=== PATIENT | female | born 1955 | race Caucasian/White ===

== ENCOUNTER → 2017-07-15 09:00 | Outpatient (POV) | payer OTHER, SELFPAY ==
[2017-07-15 09:13] VITALS: BP 121/91; PULSE 80; O2SAT 98
--- NOTE | 2017-07-15 09:19 | HMH.PMCON ---
Assessment and Plan (1) Piriformis syndrome of right side Current visit: Yes Status: Chronic Category: Medical Code(s): G57.01 - Lesion of sciatic nerve, right lower limb - Assessment and plan all Dx Assessment and Plan for all problems:: We will seek approval for right piriformis injection. Patient has tried and failed physical therapy, NSAIDs, stretching, medications. Will continue home stretching program at home. Patient would like to increase her functionality through injective therapies. This note was dictated using voice recognition software and may contain errors or omissions HPI - Data of Consult Consult date: 07/15/17 Requesting Physician: Janelle Michael APRN Primary Care Provider: Neisha Taylor APRN Family Provider: Tushar William MD - Consult Narrative Reason for consult: right hip pain History of present illness: Ms. Hayes is a 61 year old female resents today for consultation of right hip and leg pain. Patient states that driving and walking increases her pain will stretches and exercise decrease her pain. Patient states that her pain is a 5 out of 10 pain and is tried NSAIDs, physical therapy, medications. Patient is continuing home stretching program. Patient would like to be as active as possible. Most of her pain is in her right lower buttock and travels down to her knee. Patient states the pain is constant. She states that it is shooting-like at times. She states she has had this for several years. Patient has no SI's symptomology at this time. CC: Janelle Michael APRN [facility] History I have reviewed the patient's past medical history: Yes Medical History: Reports:: Diabetes Mellitus Type 2, Hyperlipidemia, Hypertension Other Medical History: Reports: Arthritis - *Social History Alcohol Intake: never Occupational Status: employed Housing: house - Psychiatric History Expresses thoughts of harming self/others: None Suicide Plan Description: No Plan Review of Systems - Review of Systems ROS General: no recent weight change, no fever, no sleep disturbances Respiratory: no cough, no shortness of air, no recurring pulmonary infections Cardiovascular/Peripheral Vascular: No chest pain, No palpitations, no edema, no shortness of breath. Gastrointestinal: no incontinence, normal bowel movements reported Genitourinary: no incontinence Musculoskeletal: Right buttock and right leg pain Psychiatric: normal mood/ affect, [denies depression], [denies anxiety] Neurological: [denies weakness in extremities], [denies balance issues] Meds Allergies Allergy/AdvReac Type Severity Reaction Status Date / Time Penicillin AdvReac Unknown NA-NAUSEA/V Uncoded 02/25/17 14:25 OMITING Objective Vital signs: Pulse BP Pulse Ox 80 121/91 98 07/15/17 09:13 07/15/17 09:13 07/15/17 09:13 Narrative: Physical Exam General: Alert and oriented x3, no acute distress, pleasant and cooperative, [on room air] Lungs: Resps E/U, Symmetrical chest expansion, Eyes: PERRL Musculoskeletal: Range of motion right hip somewhat guarded secondary to pain, deep tendon reflexes normal, strength in upper and lower extremities [5/5], antalgic gait noted, extreme point tenderness over right piriformis muscle Neurological: speech clear, applied exercise physiologist equal, no gross sensory deficits Opioid Risk Tool - Opioid Risk Tool-Female Family hx alcohol abuse: N Family hx illegal drugs: N Family hx rx drug abuse: N Personal hx alcohol abuse: N Personal hx illegal drugs: N Personal hx rx drug abuse: N Age: 45+ Hx of sexual abuse: N Mental health issues-ADD,OCD,Bipolar, etc: N Hx of depression: N Female Risk Score: 0
--- NOTE | 2017-07-15 09:34 | P.CONS_ITS ---
Assessment and Plan (1) Piriformis syndrome of right side Current visit: Yes Status: Chronic Category: Medical Code(s): G57.01 - Lesion of sciatic nerve, right lower limb - Assessment and plan all Dx Assessment and Plan for all problems:: We will seek approval for right piriformis injection. Patient has tried and failed physical therapy, NSAIDs, stretching, medications. Will continue home stretching program at home. Patient would like to increase her functionality through injective therapies. This note was dictated using voice recognition software and may contain errors or omissions HPI - Data of Consult Consult date: 07/15/17 Requesting Physician: Janelle Michael APRN Primary Care Provider: Neisha Taylor APRN Family Provider: Tushar William MD - Consult Narrative Reason for consult: right hip pain History of present illness: Ms. Hayes is a 61 year old female resents today for consultation of right hip and leg pain. Patient states that driving and walking increases her pain will stretches and exercise decrease her pain. Patient states that her pain is a 5 out of 10 pain and is tried NSAIDs, physical therapy, medications. Patient is continuing home stretching program. Patient would like to be as active as possible. Most of her pain is in her right lower buttock and travels down to her knee. Patient states the pain is constant. She states that it is shooting- like at times. She states she has had this for several years. Patient has no SI's symptomology at this time. CC: Janelle Michael APRN [facility] History I have reviewed the patient's past medical history: Yes Medical History: Reports:: Diabetes Mellitus Type 2, Hyperlipidemia, Hypertension Other Medical History: Reports: Arthritis - *Social History Alcohol Intake: never Occupational Status: employed Housing: house - Psychiatric History Expresses thoughts of harming self/others: None Suicide Plan Description: No Plan Review of Systems - Review of Systems ROS General: no recent weight change, no fever, no sleep disturbances Respiratory: no cough, no shortness of air, no recurring pulmonary infections Cardiovascular/Peripheral Vascular: No chest pain, No palpitations, no edema, no shortness of breath. Gastrointestinal: no incontinence, normal bowel movements reported Genitourinary: no incontinence Musculoskeletal: Right buttock and right leg pain Psychiatric: normal mood/ affect, [denies depression], [denies anxiety] Neurological: [denies weakness in extremities], [denies balance issues] Meds Allergies Allergy/AdvReac Type Severity Reaction Status Date / Time Penicillin AdvReac Unknown NA-NAUSEA/V Uncoded 02/25/17 14:25 OMITING Objective Vital signs: Pulse BP Pulse Ox 80 121/91 98 07/15/17 09:13 07/15/17 09:13 07/15/17 09:13 Narrative: Physical Exam General: Alert and oriented x3, no acute distress, pleasant and cooperative, [ on room air] Lungs: Resps E/U, Symmetrical chest expansion, Eyes: PERRL Musculoskeletal: Range of motion right hip somewhat guarded secondary to pain, deep tendon reflexes normal, strength in upper and lower extremities [5/5], antalgic gait noted, extreme point tenderness over right piriformis muscle Neurological: speech clear, bass singer equal, no gross sensory deficits Opioid Risk Tool - Opioid Risk T
== END ==
PROVIDERS: Family Provider Internal Medicine Adolescent Medicine; PCP Nurse Practitioner Family; Visit Provider Clinical Nurse Specialist Family Health
DX: G57.01 Lesion of sciatic nerve, right lower limb (principal)
CPT/HCPCS: 99202

== ENCOUNTER → 2017-08-11 10:39 | Outpatient (POV) | payer OTHER, SELFPAY ==
[2017-08-11 10:46] VITALS: BP 113/71; PULSE 80; RESP 18; O2SAT 97; BMI 25.7
--- NOTE | 2017-08-11 11:20 | HMH.PAINSOAP ---
[facility] Pain Management SOAP Note Subjective:: Patient is an 61-year-old white female who presents today after right piriformis injection. Patient states she 75-80% better. Patient states she is much more functional and is able to sit at work for longer periods of time. Patient doing well overall. Patient would like a repeat injection in several weeks to see if we can get a more long-term results. ROS General: no recent weight change, no fever, no sleep disturbances Respiratory: no cough, no shortness of air, no recurring pulmonary infections Cardiovascular/Peripheral Vascular: No chest pain, No palpitations, no edema, no shortness of breath. Gastrointestinal: no incontinence, normal bowel movements reported Genitourinary: no incontinence Musculoskeletal: Right-sided piriformis pain Psychiatric: normal mood/ affect Neurological: [denies weakness in extremities], [denies balance issues] Objective:: Physical Exam General: Alert and oriented x3, no acute distress, pleasant and cooperative, [on room air] Lungs: Resps E/U, Symmetrical chest expansion, Eyes: PERRL Musculoskeletal: Range of motion right leg somewhat guarded secondary to pain, deep tendon reflexes normal, strength in upper and lower extremities [5/5], slightly antalgic gait noted, extreme point tenderness over right piriformis Neurological: speech clear, postpartum nurse equal, no gross sensory deficits Assessment:: Sciatica/piriformis syndrome Plan:: We will schedule a repeat right piriformis injection for the patient given the efficacy of her last one I believe that she would benefit from one more. Patient's been stretching therapies along with anti-inflammatories and medications. I will follow-up with her after injection. Patient is not on any anticoagulation therapy This note was dictated using voice recognition software and may contain errors or omissions
--- NOTE | 2017-08-11 11:23 | P.CONS_ITS ---
[facility] Pain Management SOAP Note Subjective:: Patient is an 61-year-old white female who presents today after right piriformis injection. Patient states she 75-80% better. Patient states she is much more functional and is able to sit at work for longer periods of time. Patient doing well overall. Patient would like a repeat injection in several weeks to see if we can get a more long-term results. ROS General: no recent weight change, no fever, no sleep disturbances Respiratory: no cough, no shortness of air, no recurring pulmonary infections Cardiovascular/Peripheral Vascular: No chest pain, No palpitations, no edema, no shortness of breath. Gastrointestinal: no incontinence, normal bowel movements reported Genitourinary: no incontinence Musculoskeletal: Right-sided piriformis pain Psychiatric: normal mood/ affect Neurological: [denies weakness in extremities], [denies balance issues] Objective:: Physical Exam General: Alert and oriented x3, no acute distress, pleasant and cooperative, [ on room air] Lungs: Resps E/U, Symmetrical chest expansion, Eyes: PERRL Musculoskeletal: Range of motion right leg somewhat guarded secondary to pain, deep tendon reflexes normal, strength in upper and lower extremities [5/5], slightly antalgic gait noted, extreme point tenderness over right piriformis Neurological: speech clear, ranch helper equal, no gross sensory deficits Assessment:: Sciatica/piriformis syndrome Plan:: We will schedule a repeat right piriformis injection for the patient given the efficacy of her last one I believe that she would benefit from one more. Patient's been stretching therapies along with anti-inflammatories and medications. I will follow-up with her after injection. Patient is not on any anticoagulation therapy This note was dictated using voice recognition software and may contain errors or omissions
== END ==
PROVIDERS: Family Provider Internal Medicine Adolescent Medicine; PCP Nurse Practitioner Family; Visit Provider Clinical Nurse Specialist Family Health
DX: G57.00 Lesion of sciatic nerve, unspecified lower limb (principal)
CPT/HCPCS: 99212

== ENCOUNTER → 2017-09-09 09:42 | Outpatient (CLI) | payer OTHER, SELFPAY ==
--- NOTE | 2017-09-09 09:45 | XR_ITS ---
XR DEXA axial skeleton HISTORY: ITS.REASON: POST MENOPAUSAL ORDERING PHYSICIAN: Neisha Taylor PATIENT AGE: 61 years COMPARISON: None FINDINGS: The BMD measured at the Right femoral neck is 0.755 g/cm squared with a T score of -2.0. This is considered Osteopenic according to the World Health Organization criteria. Fracture risk is Moderate. Treatment is advised. IMPRESSION: Osteopenia with moderate fracture risk. Treatment recommended. Suggest follow-up exam September 2019
== END ==
PROVIDERS: Family Provider Internal Medicine Adolescent Medicine; PCP Nurse Practitioner Family; Visit Provider Nurse Practitioner Family
DX: Z13.820 Encounter for screening for osteoporosis (principal); Z78.0 Asymptomatic menopausal state
CPT/HCPCS: 77080

== ENCOUNTER → 2017-12-03 07:35 | Outpatient (CLI) | payer OTHER, SELFPAY | PROVIDERS: PCP Nurse Practitioner Family; Visit Provider Otolaryngology | DX: Z01.812 Encounter for preprocedural laboratory examination (principal) | CPT/HCPCS: 93005 ==

== ENCOUNTER → 2017-12-29 08:31 | Outpatient (CLI) | payer OTHER, SELFPAY ==
--- NOTE | 2017-12-29 08:35 | XR_ITS ---
XR pelvis 1-2V HISTORY: Right iliac crest pain ITS.REASON: APOPHYSITIS OF ILIAC CRESR ORDERING PHYSICIAN: Neisha Taylor PATIENT AGE: 62 years Comparison: None FINDINGS: No fracture or dislocation is evident. No significant degenerative change. No lytic or blastic change. The SI joints have an unremarkable appearance. Unremarkable soft tissues. The iliac crest has an unremarkable appearance. There is a prominent right os acetabulum. This is nonspecific but may be seen with femoral acetabular impingement. Mild osteoarthritic changes are present involving both hips. There is degenerative disc disease with facet arthritic changes L5-S1. IMPRESSION: 1. Degenerative changes of the hips and lumbosacral junction 2. Otherwise negative
== END ==
PROVIDERS: PCP Nurse Practitioner Family; Visit Provider Nurse Practitioner Family
DX: M93.959 Osteochondropathy, unspecified, unspecified thigh (principal)
CPT/HCPCS: 72170

== ENCOUNTER → 2018-06-18 13:51 | Outpatient (CLI) | payer OTHER, SELFPAY ==
--- NOTE | 2018-06-18 13:56 | XR_ITS ---
XR hand RT min 3V HISTORY: ITS.REASON: ARTHRALGIA ORDERING PHYSICIAN: Neisha Taylor PATIENT AGE: 62 years COMPARISON: None FINDINGS: No fracture or dislocation. No lytic or blastic change. There is normal mineralization.. Mild osteoarthritic change first metacarpal carpal joint. No other arthritic changes apparent. No bony erosive process. 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
--- NOTE | 2018-06-18 13:56 | XR_ITS ---
XR hand LT min 3V HISTORY: Pain ITS.REASON: ARTHRALGIA ORDERING PHYSICIAN: Neisha Taylor PATIENT AGE: 62 years COMPARISON: None FINDINGS: No fracture or dislocation. No lytic or blastic change. There is normal mineralization.. There are mild osteoarthritic changes of the first metacarpal carpal joint. No bony erosive changes IMPRESSION: Mild osteoarthritis first metacarpal carpal joint otherwise negative left hand
== END ==
PROVIDERS: PCP Nurse Practitioner Family; Visit Provider Nurse Practitioner Family
DX: M25.542 Pain in joints of left hand (principal); M25.541 Pain in joints of right hand
CPT/HCPCS: 73130

== ENCOUNTER → 2019-11-23 08:14 | Outpatient (POV) | payer OTHER, SELFPAY | PROVIDERS: Visit Provider Dermatology | DX: Z00.00 Encounter for general adult medical examination without abnormal findings (principal) ==

== ENCOUNTER 2019-12-27 14:32 | Emergency (ER) | payer OTHER, SELFPAY ==
[2019-12-27 14:39] VITALS: BP 111/87; PULSE 90; RESP 18; TEMP 36.7; O2SAT 99; BMI 27.4
--- NOTE | 2019-12-27 14:53 | HMH.EDUTC ---
[facility] [place] Clinical Impression: Contact dermatitis Qualifiers: Contact dermatitis type: allergic Contact dermatitis trigger: unspecified trigger Qualified Code(s): L23.9 - Allergic contact dermatitis, unspecified cause Disposition: Home, Self-Care Condition on Discharge: Good Instructions: Poison [place], Poison [place], Poison [place], DI for Poison [place] Allergy Additional Instructions: Try to avoid contact with the offending substance. Don't start the oral steroids until tomorrow. Don't put the topical steroids (triamcinolone) on your face or your groin. Follow up with your regular doctor. GO TO THE ER FOR ANY WORSENING SYMPTOMS OR CONCERNS Prescriptions: methylPREDNISolone [Medrol] 4 mg PO DIRECTED 6 Days #21 [email or web address] Transmission Status: Pending to [facility] Triamcinolone Acetonide 1 applicatio TP TIDP PRN 7 Days #1 tube PRN Reason: Itching Transmission Status: Pending to [facility] Referrals: Neisha Taylor APRN [Primary Care Provider] - Time of Disposition: 14:56 Medical Decision Making - Medical Records Medical records reviewed: No: I reviewed the patient's medical records. - Star Inquiry Pt receiving controlled substance: No Vital Signs: 12/27/19 14:39 Temperature 98.1 F Temperature Source Oral Pulse Rate [Radial] 90 Respiratory Rate 18 Blood Pressure [Right Arm] 111/87 Blood Pressure Mean [Right Arm] 95 Blood Pressure Source [Right Arm] Automatic Cuff Blood Pressure Position [Right Arm] Sitting 02 Sat by Pulse Oximetry 99 Oxygen Delivery Method Room Air Orders (Tests/Meds): ED MEDICATIONS Generic Name Dose Route Start Last Admin Trade Name Freq PRN Reason Stop Dose Admin Methylprednisolone Sodium Succinate 125 mg 12/27/19 14:52 Methylprednisolone Sod Succ 125mg Vial IM 12/27/19 14:53 ONCE ONE [facility] [place] - General Stated complaint: rash Time Seen by Provider: 12/27/19 14:53 Mode of Arrival: Ambulatory Source of Information: Patient Limitations: No Limitations Description of Symptoms (Recalled from Triage Doc. by RN): rash to olu upper arms HEENT Symptoms (Recalled from RN notes): No Resp Symptoms (Recalled from RN notes): No Skin Symptoms (Recalled from RN notes): Yes MS Symptoms (Recalled from RN notes): No Functional Status (Recalled from RN notes): wnl - History of Present Illness Provider Complaint: She states that over the past 1 week she has developed a rash on her bilateral arms. She states that she was exposed to poison katy or poison oak before her symptoms began. She has been taking benedryl with not much improvement in her symptoms. - Related Data Home Medications Medication Instructions Recorded Confirmed Levothyroxine Sodium 88 mcg PO DAILY 07/15/17 09/05/17 [Levothyroxine 88mcg (0.088mg) Tab] Liraglutide [Victoza 2-Reece] 1.2 ml SQ DAILY 07/15/17 09/05/17 Lisinopril/Hydrochlorothiazide 10 mg PO DAILY 07/15/17 09/05/17 [Lisinopril-Hctz 10-12.5 mg Tab] Metformin HCl 1,000 mg PO DAILY 07/15/17 09/05/17 Rosuvastatin Calcium 20 mg PO DAILY 07/15/17 09/05/17 Previous Rx's Medication Instructions Recorded Phenazopyridine HCl [Pyridium 200 pow PO TID #6 tab 06/28/18 200mg Tablet] levoFLOXacin [Levaquin 750mg 750 mg PO DAILY #5 tab 06/28/18 tablet] Triamcinolone Acetonide 1 applicatio TP TIDP PRN 7 Days #1 12/27/19 tube methylPREDNISolone [Medrol] 4 mg PO DIRECTED 6 Days #21 12/27/19 tab.[email or web address] Allergies Allergy/AdvReac Type Severity Reaction Status Date / Time Penicillins Allergy Verified 06/28/18 11:36 - Worker's Comp Is this a Worker's Comp case?: No [facility] History - Hepatitis A Screen Drug use history?: No High risk sexual behaviors?: No History of sexually transmitted infection?: No Currently employed?: No Childcare worker?: No Do you have indoor plumbing?: Yes Do you have electricity?: Yes Attestation statement:: This patient has been screened for He
[2019-12-27 15:36] VITALS: BP 111/87; PULSE 90; RESP 18; TEMP 36.7; O2SAT 99
== END 2019-12-27 15:36 | disposition home or self-care (01) ==
PROVIDERS: Emergency Provider Nurse Practitioner Family; PCP Nurse Practitioner Family
DX: L23.9 Allergic contact dermatitis, unspecified cause (principal); E11.9 Type 2 diabetes mellitus without complications; E78.5 Hyperlipidemia, unspecified; I10 Essential (primary) hypertension; Z88.0 Allergy status to penicillin; Z79.899 Other long term (current) drug therapy
CPT/HCPCS: 96372; 99201

== ENCOUNTER → 2020-01-04 08:01 | Outpatient (POV) | payer OTHER, SELFPAY | PROVIDERS: Visit Provider Dermatology | DX: Z00.00 Encounter for general adult medical examination without abnormal findings (principal) ==

== ENCOUNTER → 2020-05-16 08:01 | Outpatient (POV) | payer OTHER, SELFPAY | PROVIDERS: Visit Provider Dermatology | DX: Z00.00 Encounter for general adult medical examination without abnormal findings (principal) ==

== ENCOUNTER → 2020-05-18 11:52 | Outpatient (CLI) | payer OTHER, SELFPAY ==
--- NOTE | 2020-05-18 11:57 | XR_ITS ---
PROCEDURE: XR KUB CLINICAL INDICATION: LOWER ABD PAIN, HX OF NEPHROLITHIASIS COMPARISON: CT ABDPELW/O CT ABD PELVIS W/O CONTRAST from 04/22/2014 FINDINGS: Nonspecific nonobstructive bowel gas pattern. There are degenerative changes of the facets at the lumbosacral junction. There are multiple pelvic calcifications which may be vascular. Mild degenerative changes in the hips. IMPRESSION: No acute findings. Dictated by: Filiberto Vizcarra MD 05/18/2020 16:55 Filiberto Vizcarra MD in [place] 05/18/2020 16:55
== END ==
PROVIDERS: PCP Nurse Practitioner Family; Visit Provider Nurse Practitioner Family
DX: R10.30 Lower abdominal pain, unspecified (principal); Z87.442 Personal history of urinary calculi
CPT/HCPCS: 74018

== ENCOUNTER → 2020-07-25 14:00 | Outpatient (POV) | payer OTHER, SELFPAY | PROVIDERS: Visit Provider Dermatology | DX: Z00.00 Encounter for general adult medical examination without abnormal findings (principal) ==

== ENCOUNTER 2020-12-23 21:04 | Inpatient (IN) | payer BC, SELFPAY ==
[2020-12-23 21:02] VITALS: BP 130/107; PULSE 87; RESP 22; TEMP 36.8; O2SAT 97; BMI 26.9
[2020-12-23 21:21] VITALS: BMI 27.3
--- NOTE | 2020-12-23 21:42 | XR_ITS ---
PROCEDURE INFORMATION: Exam: XR Chest Exam date and time: 12/23/2020 9:42 PM Age: 65 years old Clinical indication: Injury or trauma; Fall; Blunt trauma (contusions or hematomas); Injury date: 12/23/2020 TECHNIQUE: Imaging protocol: XR of the chest. Views: 4 or more views. COMPARISON: CR [id number] 07/17/2016 8:44 AM FINDINGS: Lungs: Coarse interstitial lung markings likely chronic. No consolidation. Pleural spaces: Unremarkable. No pleural effusion. No pneumothorax. Heart/Mediastinum: Cardiomegaly. Bones/joints: Unremarkable. IMPRESSION: No acute findings.
--- NOTE | 2020-12-23 21:42 | CT_ITS ---
PROCEDURE INFORMATION: Exam: CT Head Without Contrast Exam date and time: 12/23/2020 9:42 PM Age: 65 years old Clinical indication: Injury or trauma; Fall; Blunt trauma (contusions or hematomas); Without loss of consciousness; Injury date: 12/23/2020 TECHNIQUE: Imaging protocol: Computed tomography of the head without contrast. 3D rendering (Not supervised by radiologist): MIP and/or 3D reconstructed images were created by the technologist. Radiation optimization: All CT scans at this facility use at least one of these dose optimization techniques: automated exposure control; mA and/or kV adjustment per patient size (includes targeted exams where dose is matched to clinical indication); or iterative reconstruction. COMPARISON: No relevant prior studies available. FINDINGS: Brain: Mild volume loss. Minimal decreased attenuation of the supratentorial white matter is likely secondary to chronic microvascular ischemia. No acute intracranial hemorrhage, midline shift or intracranial mass effect. Cerebral ventricles: No hydrocephalus. Paranasal sinuses: Visualized sinuses are unremarkable. No fluid levels. Mastoid air cells: Mild partial opacification of the right mastoid air cells. Bones/joints: Unremarkable. No acute fracture. Soft tissues: Unremarkable. IMPRESSION: No acute intracranial abnormality.
--- NOTE | 2020-12-23 21:42 | XR_ITS ---
PROCEDURE INFORMATION: Exam: XR Left Hip Exam date and time: 12/23/2020 9:42 PM Age: 65 years old Clinical indication: Injury or trauma; Fall; Blunt trauma (contusions or hematomas); Left; Hip; Injury date: 12/23/2020; Injury details: Fell; Additional info: Fall, L hip pain +short TECHNIQUE: Imaging protocol: XR Left hip. Views: 2 or 3 views hip with pelvis when performed. COMPARISON: CR PEL1V XR pelvis 1-2V 12/29/2017 8:37 AM FINDINGS: Bones/joints: There is a minimally displaced fracture the left femoral neck. No additional fracture or dislocation. Soft tissues: Unremarkable. IMPRESSION: Minimally displaced fracture of the left femoral neck.
--- NOTE | 2020-12-23 21:42 | CT_ITS ---
PROCEDURE INFORMATION: Exam: CT Cervical Spine Without Contrast Exam date and time: 12/23/2020 9:42 PM Age: 65 years old Clinical indication: Injury or trauma; Fall; Blunt trauma; Injury date: 12/23/2020 TECHNIQUE: Imaging protocol: Computed tomography images of the cervical spine without contrast. Radiation optimization: All CT scans at this facility use at least one of these dose optimization techniques: automated exposure control; mA and/or kV adjustment per patient size (includes targeted exams where dose is matched to clinical indication); or iterative reconstruction. COMPARISON: CT HEAD/BRAIN WO CON 12/23/2020 11:02 PM FINDINGS: Bones/joints: Nonspecific straightening. Trace anterolisthesis of C4 on C5 and trace retrolisthesis of C5 on C6. Vertebral body heights are preserved. [id number] degenerative change about the dens. Mild to moderate prevertebral osteophytosis. There are bilateral facet joint degenerative changes. No acute cervical spine fracture. Discs/Spinal canal/Neural foramina: No definite significant central canal stenosis within limitations of technique. Multilevel cervical foraminal stenoses. Lungs: Lung apices are normal. Pleural spaces: No visible pneumothorax. Vasculature: Vascular calcification. Soft tissues: Unremarkable. IMPRESSION: No acute cervical spine fracture.
[2020-12-23 21:48] LABS: Basophils # 0.1 K/mm3 (0-0.2); Basophils % 0.9 % (0.1-2.0); Eosinophils # 0.1 K/mm3 (0.0-0.4); Eosinophils % 0.9 % (0.1-12.0); Hematocrit 42.4 % (37.0-47.0); Hemoglobin 13.6 g/dL (12.2-16.2); Lymphocytes # 2.3 K/mm3 (0.7-4.5); Lymphocytes % 38.4 % (10-50); Mean Corpuscular Hemoglobin 28.9 pg (27.0-31.2); Mean Corpuscular Volume 90.2 fl (81-99); Mean Platelet Volume 9.6 fl (7.4-10.4); Monocytes # 0.3 K/mm3 (0.1-1.0); Monocytes % 4.1 % (1.7-9.3); Neutrophils # 3.4 K/mm3 (1.8-7.8); Neutrophils % 55.7 % (37.0-80.0); Platelet Count 206 K/mm3 (142-424); Red Cell Distribution Width 13.9 % (11.5-17.5); White Blood Count 6.1 K/mm3 (4.8-10.8)
[2020-12-23 21:53] LABS: Alanine Aminotransferase 37 U/L (12-78); Albumin Level 4.3 g/dl (3.5-5.0); Albumin/Globulin Ratio 1.4 (1.1-1.8); Alkaline Phosphatase 80 U/L (38-126); Anion Gap 13.1 mEq/L (5-15); Aspartate Amino Transferase 32 U/L (14-36); Bilirubin,Total 1.2 mg/dl (0.2-1.3); Blood Urea Nitrogen 19 mg/dl (7-17); Calcium 9.7 mg/dl (8.4-10.2); Carbon Dioxide 28 mmol/L (22.0-30.0); Chloride 102 mmol/L (98-107); Creatinine Clearance Estimated 63 mL/min (50-200); Estimated Glomerular Filt Rate 101 ml/min (>60); GFR (African American) 122 ML/MIN (>60); Glucose 214 mg/dl (74-100); Potassium 4.1 mmoL/L (3.5-5.1); Sodium 139 mmol/L (136-145); Total Protein,Serum 7.3 g/dl (6.3-8.2)
[2020-12-23 21:58] LABS: C-Reactive Protein 1.3 mg/L (0-4)
[2020-12-23 22:00] VITALS: PULSE 108; RESP 18; O2SAT 97
[2020-12-23 22:07] LABS: Troponin I 0.02 ng/ml (0.00-0.034)
[2020-12-23 22:12] LABS: Procalcitonin 0.067 ng/mL (0.0-2.0)
[2020-12-23 22:13] LABS: Erythrocyte Sedimentation Rate 19 mm/hr (0-30)
--- NOTE | 2020-12-23 22:34 | PC.NURSE ---
DR. FRIEND IN TO SEE PATIENT.
[2020-12-23 22:37] VITALS: BP 157/94; PULSE 106; RESP 18; O2SAT 97
[2020-12-23 22:40] VITALS: BP 157/94; PULSE 105; RESP 18; O2SAT 97
--- NOTE | 2020-12-23 22:47 | HMH.EDFALL ---
ED Disposition Clinical Impression: Hip fracture Qualifiers: Encounter type: initial encounter Fracture type: closed Laterality: left Qualified Code(s): S72.002A - Fracture of unspecified part of neck of left femur, initial encounter for closed fracture UTI (urinary tract infection) Qualifiers: Urinary tract infection type: site unspecified Hematuria presence: without hematuria Qualified Code(s): N39.0 - Urinary tract infection, site not specified Disposition: Admitted As Inpatient Condition on Discharge: Good - Critical Care Critical Care Time: No Attestation: On 12/23/20, the high probability of a clinically significant, sudden or life threatening deterioration of the following system(s) required my full and direct attention, intervention and personal management. The time I documented below is in addition to time spent performing reported procedures but includes the following listed in this critical care notation. Medical Decision Making - Medical Records Medical records reviewed: Yes: I reviewed the patient's medical records. - Star Inquiry Pt receiving controlled substance: No Vital Signs: 12/23/20 21:02 12/23/20 22:40 Temperature 98.2 F Temperature Source Oral Pulse Rate 105 H Pulse Rate [Right] 87 Respiratory Rate 22 18 Blood Pressure 157/94 H Blood Pressure [Right Arm] 130/107 H Blood Pressure Mean [Right Arm] 114 Blood Pressure Source [Right Arm] Automatic Cuff 02 Sat by Pulse Oximetry 97 97 Oxygen Delivery Method Room Air Room Air - Lab Data Lab results reviewed: Yes: I reviewed the patient's lab results. Lab Results 12/23/20 21:12: WBC 6.1, RBC 4.70, Hgb 13.6, Hct 42.4, MCV 90.2, MCH 28.9, MCHC 32.0, RDW 13.9, Plt Count 206, MPV 9.6, Neut % (Auto) 55.7, Lymph % (Auto) 38.4, [place] % (Auto) 4.1, Eos % (Auto) 0.9, Baso % (Auto) 0.9, Neut # (Auto) 3.4, Lymph # (Auto) 2.3, [place] # (Auto) 0.3, Eos # (Auto) 0.1, Baso # (Auto) 0.1, ESR 19 12/23/20 21:12: Sodium 139, Potassium 4.1, Chloride 102, Carbon Dioxide 28, Anion Gap 13.1, BUN 19 H, Creatinine 0.60, Estimated Creat Clear 63, Estimated GFR 101, Est GFR ( Amer) 122, Glucose 214 H, Calcium 9.7, Total Bilirubin 1.2, AST 32, ALT 37, Alkaline Phosphatase 80, Troponin I 0.02, C-Reactive Protein 1.3, Total Protein 7.3, Albumin 4.3, Globulin 3.0, Albumin/Globulin Ratio 1.4, Procalcitonin 0.067 12/23/20 23:43: Urine Color Yellow, Urine Appearance Clear, Urine pH 5.5, Ur Specific [place] >= 1.030, Urine Protein Negative, Urine Glucose (UA) Negative, Urine Ketones Trace, Urine Blood Negative, Urine Nitrate Positive, Urine Bilirubin Negative, Urine Urobilinogen 0.2, Ur Leukocyte Esterase Negative, Urine WBC 10-20, Ur Squamous Epith Cells 3-5 12/24/20 00:06: SARS-CoV-2 (PCR) Not detected, Influenza A Untype (PCR) Not detected, Influenza Type B (PCR) Not detected Result diagrams: 12/23/20 21:12 12/23/20 21:12 Orders (Tests/Meds): ED MEDICATIONS Generic Name Dose Route Start Last Admin Trade Name Freq PRN Reason Stop Dose Admin Sodium Chloride 1,000 mls @ 999 mls/hr 12/23/20 21:30 12/23/20 21:24 Sod Chlor 0.9% 1000ml Bag IV 12/23/20 22:30 999 mls/hr .Q1H1M KRISS Administration Ceftriaxone Sodium 1 gm/ 50 mls @ 100 mls/hr 12/24/20 01:00 12/24/20 00:59 Sodium Chloride IV 01/07/21 00:59 100 mls/hr Q24H KRISS Administration Discontinued Medications Generic Name Dose Route Start Last Admin Trade Name Freq PRN Reason Stop Dose Admin Hydromorphone HCl 1 mg 12/23/20 21:22 12/23/20 21:24 Hydromorphone 2mg/Ml Syringe IV 12/23/20 21:23 1 mg ONCE ONE Administration Hydromorphone HCl 1 mg 12/23/20 23:48 12/23/20 23:53 Hydromorphone 2mg/Ml Syringe IV 12/23/20 23:49 1 mg ONCE ONE Administration Ketorolac Tromethamine 30 mg 12/23/20 22:59 12/23/20 23:00 Ketorolac 30mg/Ml Vial IV 12/23/20 23:00 30 mg ONCE ONE Administration Ondansetron HCl 4 mg 12/23/20 21:22 12/23/20 21:24 Ondansetron 4mg/2ml
--- NOTE | 2020-12-23 23:33 | PC.NURSE ---
Dr. Galindo s/w Dr. Szymanski for consult.
[2020-12-23 23:44] VITALS: BP 171/94; PULSE 104; RESP 14; O2SAT 93
--- NOTE | 2020-12-23 23:45 | PC.NURSE ---
Dr. Galindo s/w Dr. Rodriguez for admission. Agrees, house notified for bed assignment.
[2020-12-23 23:47] LABS: Microscopic, Urine URINE MICROSCOPIC (MICROSCOPIC)
[2020-12-23 23:51] LABS: Appearance,Urine CLEAR (Clear); Bilirubin,Urine Negative (Negative); Blood, Urine Negative (Negative); Color,Urine YELLOW (Yellow); Glucose,Urine (UA) Negative (Negative); Ketones,Urine TRACE (Negative); Leukocyte Esterase,Urine Negative (Negative); Nitrate,Urine POSITIVE (Negative); PH,Urine 5.5 (5.0-8.5); Protein,Urine Negative (Negative); Specific Gravity, Urine >= 1.030 (1.005-1.030); Urobilinogen,Urine 0.2 EU/dl (0.2)
--- NOTE | 2020-12-23 23:53 | ECG_ITS ---
APPROVED REPORT Exam: Resting ECG HR:96 bpm ECG Measurements Heart Rate 96 AXES FL 176 P 44 QRSd 84 QRS 12 QT 380 T 70 QTc 480 Conclusion Normal sinus rhythm Nonspecific ST and T wave abnormality Prolonged QT Abnormal ECG Electronically signed by : Tushar William MD 12/25/2020 17:59:04
[2020-12-24] VITALS (8 sets, daily range): BP systolic 113–155; BP diastolic 63–96; PULSE 78–115; RESP 14–20; TEMP 36.6–37; O2SAT 90–98; BMI 30.4
[2020-12-24 00:09] LABS: Coronavirus 19, PCR Not Detected (NotDetected); Influenza A, PCR Not Detected (NotDetected); Influenza B, PCR Not Detected (NotDetected)
--- NOTE | 2020-12-24 01:46 | PC.NURSE ---
Report given to Vikki greer. Patient to be transferred via stretcher
--- NOTE | 2020-12-24 02:23 | PC.NURSE ---
patient up to floor via stretcher @ this time .
--- NOTE | 2020-12-24 04:21 | PC.NURSE ---
pt admitted to 202 from ED this am, pain well controlled with pain medication, VSS, pt to possibly have surgery today, pt resting comfortably in bed, will continue to monitor
[2020-12-24 06:03] LABS: POC Glucose,Bedside 176 (70-110)
--- NOTE | 2020-12-24 08:06 | HMH.HP ---
*Admission Date: 12/24/20 *Chief complaint: left hip/leg pain; fall *History of present illness: Mrs. Hayes is a 65 yo F who presented to the ER via EMS after sustaining a fall at home in her driveway. She reports she was walking in her driveway when her dogs tripped her and she fell forward. She developed rather acute severe pain in her left hip and was unable to stand. Her family helped her up but the pain was so severe she vomitied and still unable to stand/bear weight to left leg. Pt unable to move left leg, it appears shortened but not rotated. 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 On assessment this morning, she continues to complain of left leg pain. Is nausea so she just had some pain medication. Denies chest pain or shortness of breath however. No other significant trauma, did not hit her head. Of note, A1c added to morning labs showing diabetes poorly controlled. A1c greater than 11. Patient has been on Metformin for years but denies ariel symptoms of uncontrolled diabetes including polyuria, nocturia. No GI upset from Metformin. at bedside. Patient stated during interview that she wants to go home after surgery and would like to rehab as an outpatient. Brief discussion that we will make further plans after surgery and once physical therapy is able to assess her. [facility] History I have reviewed the patient's past medical history: Yes Medical History: Reports:: Diabetes Mellitus Type 2, Hyperlipidemia, Hypertension Denies:: Cancer, Diabetes Mellitus Type 1, Internal Pacemaker, MRSA, Seizures *Have you ever received a pneumonia vaccine?: No *Have you received a flu vaccine this season?: No Other Medical History: Reports: Arthritis Other Surgeries: No: Pacemaker Amputation: No Fractures: No - *Social History Smoking Status: Never smoker Alcohol Intake: current Alcohol Intake Frequency:: holidays/special occasions only *Occupational Status:: retired Housing: house *Travel in the last 8 weeks: None Family Hx:: Unable to obtain Review of Systems - Review of Systems Review of systems:: pertinent systems reviewed and negative unless documented below (14 point review of systems performed, pertinent positives and negatives as per HPI) - *Neurologic Denies localized weakness Meds Home Medications Medication Instructions Recorded Confirmed Type Levothyroxine Sodium 88 mcg PO DAILY 07/15/17 12/24/20 History [Levothyroxine 88mcg (0.088mg) Tab] Losartan Potassium 50 mg PO DAILY 12/24/20 12/24/20 History Metformin HCl [Metformin 1000mg 1,000 mg PO BID 12/24/20 12/24/20 History Tablets] Rosuvastatin Calcium 20 mg PO HS 12/24/20 12/24/20 History Allergies Allergy/AdvReac Type Severity Reaction Status Date / Time Penicillins Allergy Verified 06/28/18 11:36 Exam Vital signs and Labs for Last 24 Hours: Temp Pulse Resp BP Pulse Ox 98.1 F 78 17 113/65 90 L 12/24/20 04:07 12/24/20 04:07 12/24/20 04:07 12/24/20 04:07 12/24/20 04:07 Laboratory Results - last 24 hr 12/23/20 21:12: WBC 6.1, RBC 4.70, Hgb 13.6, Hct 42.4, MCV 90.2, MCH 28.9, MCHC 32.0, RDW 13.9, Plt Count 206, MPV 9.6, Neut % (Auto) 55.7, Lymph % (Auto) 38.4, [place] % (Auto) 4.1, Eos % (Auto) 0.9, Baso % (Auto) 0.9, Neut # (Auto) 3.4, Lymph # (Auto) 2.3, [place] # (Auto) 0.3, Eos # (Auto) 0.1, Baso # (Auto) 0.1, ESR 19 12/23/20 21:12: Sodium 139, Potassium 4.1, Chloride 102, Carbon Dioxide 28, Anion Gap 13.1, BUN 19 H, Creatinine 0.60, Estimated Creat Clear 63, Estimated GFR 101, Est GFR ( Amer) 122, Glucose 214 H, Calcium 9.7, Total Bilirubin 1.2, AST 32, ALT 37, Alkaline Phosphatase 80, Troponin I 0.02, C-Reactive Protein 1.3, Total Protein 7.3, Albumin 4.3, Globulin 3.0, Albumin/Globulin Ratio 1.4, Procalcitonin 0.067 12/23/20 23:43: Urine Color Yellow, Urine Appearance Clear, Urine pH 5.5, Ur Specific [place] >= 1.030, Urine Protein Negative, Urine Glucose (UA) Negative, Urine Ketones Trace, Urine Blood Negative, Urine Nitrate Posit
[2020-12-24 08:21] LABS: Basophils % 0.3 % (0.1-2.0); Eosinophils % 0.2 % (0.1-12.0); Hemoglobin 12.2 g/dL (12.2-16.2); Lymphocytes % 17.3 % (10-50); Mean Corpuscular HGB Conc 31.3 g/dL (31.8-35.4); Mean Corpuscular Hemoglobin 28.7 pg (27.0-31.2); Mean Corpuscular Volume 91.8 fl (81-99); Mean Platelet Volume 9.3 fl (7.4-10.4); Monocytes # 0.2 K/mm3 (0.1-1.0); Monocytes % 4.1 % (1.7-9.3); Neutrophils # 4.5 K/mm3 (1.8-7.8); Neutrophils % 78.1 % (37.0-80.0); Platelet Count 182 K/mm3 (142-424); Red Blood Count 4.25 M/mm3 (4.20-5.40); Red Cell Distribution Width 13.9 % (11.5-17.5); White Blood Count 5.7 K/mm3 (4.8-10.8)
[2020-12-24 08:26] LABS: Chloride 103 mmol/L (98-107); Potassium 4.3 mmoL/L (3.5-5.1); Sodium 140 mmol/L (136-145)
[2020-12-24 08:29] LABS: Anion Gap 12.3 mEq/L (5-15); Blood Urea Nitrogen 17 mg/dl (7-17); Calcium 8.4 mg/dl (8.4-10.2); Carbon Dioxide 29 mmol/L (22.0-30.0); Creatinine Clearance Estimated 70 mL/min (50-200); Estimated Glomerular Filt Rate 101 ml/min (>60); GFR (African American) 122 ML/MIN (>60); Glucose 179 mg/dl (74-100); Magnesium 1.3 mg/dl (1.6-2.3)
[2020-12-24 08:31] LABS: INR 0.97 (0.9-1.1)
[2020-12-24 08:56] LABS: Hemoglobin A1C 11.6 % (4.0-6.0)
--- NOTE | 2020-12-24 11:12 | HMH.ORTHOCON ---
*Admission Date: 12/24/20 *Reason for consult:: Fracture neck of femur, left hip *History of present illness: Patient is a 65-year-old white female admitted to hospital following a left femoral neck fracture secondary to a mechanical fall at home.? The patient states that she tripped over her dogs on the driveway at home, yesterday evening and fell.? She states that she developed immediate severe pain in her left hip and could not get up and walk afterwards.? She was brought to the ER where evaluation including x-rays showed a displaced femoral neck fracture on the left side.? Patient is admitted for further management of the injury.? Today, she is complaining of left hip pain worsened with any attempted movements.? No history of any distal tingling or numbness.? She denies any other injuries.? She denies any chest pain, pressure, shortness of breath, dizziness or syncope yesterday when she fell.? She reports no history of any hip pain or problems with the left hip prior to the fall.? She is independent and mobile without using any walking aids.? She is giving a history of cervical cancer last year and says she had radiotherapy but not surgery.? There is no history of any metastatic disease.? Her medical history includes hyperlipidemia, hypertension, hypothyroidism and diabetes. Her diabetic control is very poor with HbA1c of 11.6 today. She is also being investigated for possible UTI and is on IV antibiotics. [facility] History I have reviewed the patient's past medical history: Yes Medical History: Reports:: Diabetes Mellitus Type 2, Hyperlipidemia, Hypertension Denies:: Cancer, Diabetes Mellitus Type 1, Internal Pacemaker, MRSA, Seizures *Have you ever received a pneumonia vaccine?: No *Have you received a flu vaccine this season?: No Other Medical History: Reports: Arthritis Other Surgeries: No: Pacemaker Amputation: No Fractures: No - *Social History Smoking Status: Never smoker Alcohol Intake: current Alcohol Intake Frequency:: holidays/special occasions only *Occupational Status:: retired Housing: house *Travel in the last 8 weeks: None Family Hx:: Unable to obtain Review of Systems - Review of Systems Review of systems:: pertinent systems reviewed and negative unless documented below - Constitutional Denies chills, Denies fever(s) - Eyes Denies change in vision - ENT Denies abnormal hearing - *Cardiovascular Denies chest pain, Denies shortness of breath - *Respiratory Denies chest congestion, Denies cough - *Gastrointestinal Denies abdominal pain, Denies change in bowel habits - *Musculoskeletal Reports abnormal walking, Reports joint pain, Reports limited joint movement - Integumentary/Breasts Denies non-healing lesions, Denies skin ulcer - *Neurologic Reports abnormal walking, Denies seizure-like activity, Denies localized weakness, Denies tingling/numbness/burning sensations - Endocrine Denies cold intolerance, Denies heat intolerance - Hematologic/Lymphatic Denies easy bleeding, Denies easy bruising Meds Home Medications Medication Instructions Recorded Confirmed Type Levothyroxine Sodium 88 mcg PO DAILY 07/15/17 12/24/20 History [Levothyroxine 88mcg (0.088mg) Tab] Metformin HCl [Metformin 1000mg 1,000 mg PO BID 12/24/20 12/24/20 History Tablets] RX: Losartan Potassium 50 mg PO DAILY 12/24/20 12/24/20 History RX: Rosuvastatin Calcium 20 mg PO HS 12/24/20 12/24/20 History Allergies Allergy/AdvReac Type Severity Reaction Status Date / Time Penicillins Allergy Verified 06/28/18 11:36 Exam Vital signs and Labs for Last 24 Hours: Temp Pulse Resp BP Pulse Ox 98.2 F 83 20 129/76 97 12/24/20 08:00 12/24/20 08:00 12/24/20 08:00 12/24/20 08:00 12/24/20 08:00 Laboratory Results - last 24 hr 12/23/20 21:12: WBC 6.1, RBC 4.70, Hgb 13.6, Hct 42.4, MCV 90.2, MCH 28.9, MCHC 32.0, RDW 13.9, Plt Count 206, MPV 9.6, Neut % (Auto) 55.7, Lymph % (Auto) 38.4, [place] % (Auto) 4.1,
[2020-12-24 11:30] LABS: POC Glucose,Bedside 147 (70-110)
--- NOTE | 2020-12-24 13:38 | P.CONPHA_ITS ---
[facility] Pharmacy VTE Monitoring - Patient Demographics Admission date: 12/24/20 Report Date: 12/24/20 Time: 13:38 Allergies/Adverse Reactions: Patient Allergies Penicillins Allergy (Verified 06/28/18 11:36) Height: 1.6 m Weight: 78.018 kg Patient Problems: Current Active Problems UTI (urinary tract infection) (Acute) Hip fracture (Acute) Hypothyroid (Chronic) Essential hypertension (Chronic) Type 2 diabetes mellitus (Chronic) - VTE Risk Labs: VTE Related Lab Results Hgb 12.2 g/dL (12.2-16.2) D 12/24/20 07:56 Hct 39.0 % (37.0-47.0) 12/24/20 07:56 Plt Count 182 K/mm3 (142-424) 12/24/20 07:56 PT 11.0 seconds (10.1-12.5) 12/24/20 07:56 INR 0.97 (0.9-1.1) 12/24/20 07:56 BUN 17 mg/dl (7-17) 12/24/20 07:56 Creatinine 0.60 mg/dl (0.52-1.04) 12/24/20 07:56 Estimated Creat Clear 70 mL/min (50-200) 12/24/20 07:56 - Prophylaxis Types of VTE Prophylaxis: TEDS Knee High, Pharmacological (KARYNA HOSE ORDERED, ONE DOSE OF LOVENOX PROPHYLATIC PRIOR TO SURGERY.) Location of Applied Device: Not Applicable
[2020-12-24 16:16] LABS: POC Glucose,Bedside 120 (70-110)
[2020-12-24 21:41] LABS: POC Glucose,Bedside 130 (70-110)
--- NOTE | 2020-12-24 22:20 | PC.NURSE ---
PT TRANSPORTED VIA BED TO OB UNIT AT THIS TIME. REPORT RECEIVED. PT ORIENTED TO UNIT, STAFF AND PLAN OF CARE.
[2020-12-25] VITALS (22 sets, daily range): BP systolic 108–134; BP diastolic 63–94; PULSE 77–108; RESP 12–18; TEMP 36.5–38; O2SAT 90–95
--- NOTE | 2020-12-25 03:10 | PC.NURSE ---
BATH COMPLETED TO THE BEST OF PATIENT'S TOLERANCE. PT ABLE TO TURN TO RIGHT SIDE. CHUX PAD AND DRAW SHEET CHANGED, UNDERWEAR REMOVED AND BED BATH COMPLETE. PERICARE AND CATHETER CARE PERFORMED AT THIS TIME WELL. PATIENT UNABLE TO TOLERATE TOTAL LINEN CHANGE WITHOUT 10/10 PAIN.
--- NOTE | 2020-12-25 04:00 | PC.NURSE ---
PATIENT HAS RESTED WELL WITH INTERMITTENT PAIN MOSTLY RELIEVED WITH PRN MEDICATION. HALL CATHETER ADEQUATELY DRAINING LIGHT YELLOW URINE. 750ML OUTPUT THIS SHIFT. IV IN RIGHT AC PATENT AND INFUSING NS AT 100ML/HR. A&O X4. LUNGS CTAB. PT BATHED AND CONSENTS SIGNED FOR SURGERY TODAY. CALL KNIGHT IN REACH.
[2020-12-25 06:28] LABS: POC Glucose,Bedside 128 (70-110)
--- NOTE | 2020-12-25 06:47 | PC.NURSE ---
LAB AT BEDSIDE
[2020-12-25 07:05] LABS: Basophils % 0.3 % (0.1-2.0); Eosinophils # 0.1 K/mm3 (0.0-0.4); Eosinophils % 0.8 % (0.1-12.0); Hematocrit 39.8 % (37.0-47.0); Hemoglobin 12.2 g/dL (12.2-16.2); Lymphocytes # 1.3 K/mm3 (0.7-4.5); Lymphocytes % 22.8 % (10-50); Mean Corpuscular HGB Conc 30.6 g/dL (31.8-35.4); Mean Corpuscular Hemoglobin 28.6 pg (27.0-31.2); Mean Corpuscular Volume 93.6 fl (81-99); Mean Platelet Volume 8.6 fl (7.4-10.4); Monocytes # 0.3 K/mm3 (0.1-1.0); Monocytes % 5.2 % (1.7-9.3); Neutrophils # 4.1 K/mm3 (1.8-7.8); Platelet Count 164 K/mm3 (142-424); Red Blood Count 4.25 M/mm3 (4.20-5.40); Red Cell Distribution Width 13.6 % (11.5-17.5); White Blood Count 5.8 K/mm3 (4.8-10.8)
[2020-12-25 07:12] LABS: Chloride 103 mmol/L (98-107); Sodium 138 mmol/L (136-145)
[2020-12-25 07:15] LABS: Alanine Aminotransferase 22 U/L (12-78); Albumin Level 3.3 g/dl (3.5-5.0); Albumin/Globulin Ratio 1.2 (1.1-1.8); Alkaline Phosphatase 70 U/L (38-126); Aspartate Amino Transferase 21 U/L (14-36); Bilirubin,Total 2.4 mg/dl (0.2-1.3); Blood Urea Nitrogen 11 mg/dl (7-17); Calcium 8.2 mg/dl (8.4-10.2); Carbon Dioxide 28 mmol/L (22.0-30.0); Creatinine Clearance Estimated 70 mL/min (50-200); Estimated Glomerular Filt Rate 101 ml/min (>60); GFR (African American) 122 ML/MIN (>60); Globulin 2.7 g/dL (1.3-3.2); Glucose 146 mg/dl (74-100); Magnesium 1.3 mg/dl (1.6-2.3)
[2020-12-25 07:35] LABS: Activated Partial Thrombo Time 22.8 seconds (22.8-30.6); INR 1.01 (0.9-1.1); Prothrombin Time 11.4 seconds (10.1-12.5)
--- NOTE | 2020-12-25 08:13 | HMH.PHACONS ---
- Pharmacy Consult Date: 12/25/20 Time: 08:13 Referring provider: DR. LABOY Reason for Consult:: VANCOMYCIN CONSULT PREOP Allergies and ADEs:: Allergies Allergy/AdvReac Type Severity Reaction Status Date / Time Penicillins Allergy Verified 06/28/18 11:36 Home Medications:: Home Medications Medication Instructions Recorded Confirmed Type Levothyroxine Sodium 88 mcg PO DAILY 07/15/17 12/24/20 History [Levothyroxine 88mcg (0.088mg) Tab] Losartan Potassium 50 mg PO DAILY 12/24/20 12/24/20 History Metformin HCl [Metformin 1000mg 1,000 mg PO BID 12/24/20 12/24/20 History Tablets] Rosuvastatin Calcium 20 mg PO HS 12/24/20 12/24/20 History Height: 1.6 m Weight: 78.018 kg Laboratory Results:: Laboratory Results - last 24 hr 12/24/20 07:56: WBC 5.7, RBC 4.25, Hgb 12.2 D, Hct 39.0, MCV 91.8, MCH 28.7, MCHC 31.3 L, RDW 13.9, Plt Count 182, MPV 9.3, Neut % (Auto) 78.1, Lymph % (Auto) 17.3, [place] % (Auto) 4.1, Eos % (Auto) 0.2, Baso % (Auto) 0.3, Neut # (Auto) 4.5, Lymph # (Auto) 1.0, [place] # (Auto) 0.2, Eos # (Auto) 0.0, Baso # (Auto) 0.0 12/24/20 07:56: PT 11.0, INR 0.97 12/24/20 07:56: Sodium 140, Potassium 4.3, Chloride 103, Carbon Dioxide 29, Anion Gap 12.3, BUN 17, Creatinine 0.60, Estimated Creat Clear 70, Estimated GFR 101, Est GFR ( Amer) 122, Glucose 179 H, Calcium 8.4, Magnesium 1.3 L 12/24/20 07:56: Hemoglobin A1c 11.6 H 12/24/20 10:38: POC Glucose 147 H 12/24/20 16:03: POC Glucose 120 H 12/24/20 21:16: POC Glucose 130 H 12/25/20 06:22: POC Glucose 128 H 12/25/20 06:52: WBC 5.8, RBC 4.25, Hgb 12.2, Hct 39.8, MCV 93.6, MCH 28.6, MCHC 30.6 L, RDW 13.6, Plt Count 164, MPV 8.6, Neut % (Auto) 71.0, Lymph % (Auto) 22.8, [place] % (Auto) 5.2, Eos % (Auto) 0.8, Baso % (Auto) 0.3, Neut # (Auto) 4.1, Lymph # (Auto) 1.3, [place] # (Auto) 0.3, Eos # (Auto) 0.1, Baso # (Auto) 0.0 12/25/20 06:52: PT 11.4, INR 1.01, APTT 22.8 12/25/20 06:52: Sodium 138, Potassium 4.0, Chloride 103, Carbon Dioxide 28, Anion Gap 11.0, BUN 11 D, Creatinine 0.60, Estimated Creat Clear 70, Estimated GFR 101, Est GFR ( Amer) 122, Glucose 146 H, Calcium 8.2 L, Magnesium 1.3 L, Total Bilirubin 2.4 H, AST 21 D, ALT 22 D, Alkaline Phosphatase 70, Total Protein 6.0 L, Albumin 3.3 L D, Globulin 2.7, Albumin/Globulin Ratio 1.2 Medical History: Reports:: Diabetes Mellitus Type 2, Hyperlipidemia, Hypertension Denies:: Cancer, Diabetes Mellitus Type 1, Internal Pacemaker, MRSA, Seizures Assessment and Plan (1) Hip fracture Status: Acute Qualifiers: Encounter type: initial encounter Fracture type: closed Laterality: left Qualified Code(s): S72.002A - Fracture of unspecified part of neck of left femur, initial encounter for closed fracture Category: Medical Code(s): S72.009A - Fracture of unspecified part of neck of unspecified femur, initial encounter for closed fracture (2) Hypothyroid Status: Chronic Qualifiers: Hypothyroidism type: acquired Qualified Code(s): E03.9 - Hypothyroidism, unspecified Category: Medical Code(s): E03.9 - Hypothyroidism, unspecified (3) Essential hypertension Status: Chronic Category: Medical Code(s): I10 - Essential (primary) hypertension (4) Type 2 diabetes mellitus Status: Chronic Qualifiers: Diabetes mellitus equipment operator intermodal yard insulin use: without equipment operator intermodal yard use Diabetes mellitus complication status: without complication Qualified Code(s): E11.9 - Type 2 diabetes mellitus without complications Category: Medical Code(s): E11.9 - Type 2 diabetes mellitus without complications (5) Obesity (BMI 30.0-34.9) Status: Chronic Category: Medical Code(s): E66.9 - Obesity, unspecified (6) UTI (urinary tract infection) Status: Acute Qualifiers: Urinary tract infection type: site unspecified Hematuria presence: without hematuria Qualified Code(s): N39.0 - Urinary tract infection, site not specified Category: Medical Code(s): N39.0 - Urinary tract infec
--- NOTE | 2020-12-25 08:15 | PC.NURSE ---
Nurse in room for Vitals signs and routine assessment. O2 saturation noted to be at 59% on RA. 2L O2 applied via NC. O2 sats noted to go up to 75%. O2 Turned up to 3L. O2 sats noted to be up to 84%. Humidification added. O2 sats at 90% on 4L O2 via NC. Pt. tolerating well. will continue to monitor.
--- NOTE | 2020-12-25 08:51 | HMH.ACPN2 ---
Internal Medicine - PN: Subj *Date: 12/25/20 *Time: 08:51 Interval history: Patient is pleasant, little sleepy because she just received pain medication. Oriented x3 however. No complaints except for pain in her fractured hip. Exam Vital signs and Labs for Last 24 Hours: Temp Pulse Resp BP Pulse Ox 98.5 F 98 H 16 108/74 L 92 L 12/25/20 04:00 12/25/20 04:00 12/25/20 04:00 12/25/20 04:00 12/25/20 04:00 Laboratory Results - last 24 hr 12/23/20 23:43: Urine Color Yellow, Urine Appearance Clear, Urine pH 5.5, Ur Specific [place] >= 1.030, Urine Protein Negative, Urine Glucose (UA) Negative, Urine Ketones Trace, Urine Blood Negative, Urine Nitrate Positive, Urine Bilirubin Negative, Urine Urobilinogen 0.2, Ur Leukocyte Esterase Negative, Urine WBC 10-20, Ur Squamous Epith Cells 3-5 12/24/20 07:56: Hemoglobin A1c 11.6 H 12/24/20 10:38: POC Glucose 147 H 12/24/20 16:03: POC Glucose 120 H 12/24/20 21:16: POC Glucose 130 H 12/25/20 06:22: POC Glucose 128 H 12/25/20 06:52: WBC 5.8, RBC 4.25, Hgb 12.2, Hct 39.8, MCV 93.6, MCH 28.6, MCHC 30.6 L, RDW 13.6, Plt Count 164, MPV 8.6, Neut % (Auto) 71.0, Lymph % (Auto) 22.8, [place] % (Auto) 5.2, Eos % (Auto) 0.8, Baso % (Auto) 0.3, Neut # (Auto) 4.1, Lymph # (Auto) 1.3, [place] # (Auto) 0.3, Eos # (Auto) 0.1, Baso # (Auto) 0.0 12/25/20 06:52: PT 11.4, INR 1.01, APTT 22.8 12/25/20 06:52: Sodium 138, Potassium 4.0, Chloride 103, Carbon Dioxide 28, Anion Gap 11.0, BUN 11 D, Creatinine 0.60, Estimated Creat Clear 70, Estimated GFR 101, Est GFR ( Amer) 122, Glucose 146 H, Calcium 8.2 L, Magnesium 1.3 L, Total Bilirubin 2.4 H, AST 21 D, ALT 22 D, Alkaline Phosphatase 70, Total Protein 6.0 L, Albumin 3.3 L D, Globulin 2.7, Albumin/Globulin Ratio 1.2 I & O for Last 24 hours: Intake & Output 12/22/20 12/23/20 12/24/20 12/25/20 11:59 11:59 11:59 11:59 Intake Total 526 / 526 720 / 720 Output Total 925 / 925 1175 / 1175 Balance -399 / -399 -455 / -455 Weight 172 lb Microbiology Reports for the Last 24 Hours: Microbiology 12/23/20 23:43 Urine,Catheterized Urine Culture - Preliminary Gram Negative Rods - Constitutional no acute distress - *Routine HEENT Exam Head: Present: normocephalic Eye: Present: EOMI, PERRL ENT: Present: mucous membranes moist - *Routine Neck Exam Present: supple. Absent: lymphadenopathy - *Routine Respiratory Exam Present: CTA bilaterally - *Routine Cardiovascular Exam Present: RRR - *Routine Abdominal Exam Present: soft, normoactive bowel sounds. Absent: tenderness - *Routine Extremities Exam Absent: cyanosis, clubbing, edema Comments: Shortened left lower extremity but no edema, able to wiggle toes well. Pain with movement of the hip Assessment and Plan (1) Hip fracture Status: Acute Qualifiers: Encounter type: initial encounter Fracture type: closed Laterality: left Qualified Code(s): S72.002A - Fracture of unspecified part of neck of left femur, initial encounter for closed fracture Category: Medical Code(s): S72.009A - Fracture of unspecified part of neck of unspecified femur, initial encounter for closed fracture (2) Hypothyroid Status: Chronic Qualifiers: Hypothyroidism type: acquired Qualified Code(s): E03.9 - Hypothyroidism, unspecified Category: Medical Code(s): E03.9 - Hypothyroidism, unspecified (3) Essential hypertension Status: Chronic Category: Medical Code(s): I10 - Essential (primary) hypertension (4) Type 2 diabetes mellitus Status: Chronic Qualifiers: Diabetes mellitus mcfp insulin use: without filler leaf cutter long use Diabetes mellitus complication status: without complication Qualified Code(s): E11.9 - Type 2 diabetes mellitus without complications Category: Medical Code(s): E11.9 - Type 2 diabetes mellitus without complications (5) Obesity (BMI 30.0-34.9) Status: Chronic Category: Medical Code(s):
[2020-12-25 11:11] LABS: POC Glucose,Bedside 136 (70-110)
--- NOTE | 2020-12-25 11:30 | PC.NURSE ---
Pt. to pre-op with Pre-op staff x2. Spouse to surgery waiting room.
--- NOTE | 2020-12-25 12:39 | P.PN_ITS ---
[facility] Anesthesia Checklist - Structural Data Admitted From: Inpatient Planned Operative Procedure/s: l total hip Consent for Planned Operative Procedure(s) Verified: Yes - Airway Assessment C-Spine Mobility Assessed: Yes TMJ Mobility Assessed: Yes Dentition: Poor Dentition - Neurological Assessment Level of Consciousness: Awake, Alert, Appropriate - Anesthesia Plan Anesthesia Risk discussed: Yes Anesthesia Plan: Verified ASA Class: III Anesthesia Type: MAC w/Spinal [facility] History I have reviewed the patient's past medical history: Yes Medical History: Reports:: Diabetes Mellitus Type 2, Hyperlipidemia, Hypertension Denies:: Cancer, Diabetes Mellitus Type 1, Internal Pacemaker, MRSA, Seizures *Have you ever received a pneumonia vaccine?: No *Have you received a flu vaccine this season?: No Other Medical History: Reports: Arthritis Anesthesia experience/problems:: none Other Surgeries: No: Pacemaker Amputation: No Fractures: No - *Social History Smoking Status: Never smoker Alcohol Intake: current Alcohol Intake Frequency:: holidays/special occasions only Substance Use Type: denies use *Occupational Status:: retired Housing: house *Travel in the last 8 weeks: None Family Hx:: Unable to obtain
--- NOTE | 2020-12-25 16:55 | XR_ITS ---
PROCEDURE INFORMATION: Exam: XR Left Hip Exam date and time: 12/25/2020 4:55 PM Age: 65 years old Clinical indication: Condition or disease; Other: Post op total left hip arthroplasty. ; Prior surgery; Surgery date: Post-operative (0-2 days); Surgery type: Left hip arthroplasty just a few minutes ago. ; Additional info: Post left total hip arthroplasty TECHNIQUE: Imaging protocol: XR Left hip. Views: 2 or 3 views hip with pelvis when performed. COMPARISON: CR XR HIP LT 2-3V W/PELVIS 12/23/2020 11:12 PM FINDINGS: Bones/joints: Mild right hip osteoarthritis, as manifested predominantly by decreased joint space and marginal osteophyte formation. Recent complete left hip arthroplasty in adequate anatomic alignment. No evidence of hardware complications. Specifically, no evidence for hardware loosening or periprosthetic fractures. There is no evidence of acutely displaced fractures. There is no evidence of joint dislocation. No aggressive osseous lesions. Soft tissues: Expected postsurgical changes including soft tissue swelling and soft tissue emphysema. IMPRESSION: 1. Recent complete left hip arthroplasty with expected postsurgical changes and no evidence of complications. 2. There is adequate anatomic alignment.
--- NOTE | 2020-12-25 18:03 | P.PN_ITS ---
[facility] Anesthesia Record Part I Intake, IV Amount: 2,500 Estimated blood loss (mL): 250 Urine output (mL): 700 Blood Pressure: 121/69 SaO2: 94 Pulse Rate: 77 Respiratory Rate: 12 Temperature: 98.2 F Patient is:: Awake, Stable Stable to PACU at:: 18:00
[2020-12-25 18:15] LABS: POC Glucose,Bedside 103 (70-110)
--- NOTE | 2020-12-25 18:35 | PC.NURSE ---
Report received from Gulshan Bajwa RN. Awaiting xrays before pt. is transported to unit.
--- NOTE | 2020-12-25 19:09 | PC.NURSE ---
Pt. arrived to room 279 via Bed. accompanied by PACU staff.
--- NOTE | 2020-12-25 19:35 | HMH.OPNOTE ---
Date of procedure: 12/25/20 Pre-op Diagnosis:: Closed, displaced femoral neck fracture, left hip Post-op Diagnosis:: Same Procedure performed:: Uncemented total hip arthroplasty, left hip Surgeon:: Deni Szymanski MD Manager Crisis(s):: Rhona Castillo PA-C GAUNTLET PAIRER:: Dave Melgoza Anesthesia: spinal Estimated blood loss (mL): 250 Clinical Note:: Patient is a 65-year-old female who sustained a displaced intra-capsular fracture neck of left femur following a mechanical fall. Patient usually walks independently without any walking aids.? There is no history of any hip pain or problems prior to the injury.? She denies loss of consciousness, chest pain and shortness of breath.? Patient has hyperlipidemia, hypertension, hypothyroidism and diabetes. Her diabetic control is very poor with HbA1c of 11.6 on admission. Given the fracture pattern, her activity level and relatively younger age, following a detailed discussion, patient opted for a total hip arthroplasty to the left hip.? The surgery is indicated to relieve pain and restore function. The operation is clinically indicated and is the standard of care for this type of fracture. Please refer to my consult note for full details. Operative findings:: Displaced sub capital femoral neck fracture of the left hip as noted on the preoperative hip x-rays.? No significant degenerative changes were noted in the hip joint.? The proximal femur bone quality is good. Operative note:: On the day of the procedure the patient was met on the floor, and a physical examination was performed. The operating side and site were marked and initialed by me. I have reviewed the diagnosis, natural history and management options in detail including both the nonsurgical and surgical. Given the nature of the fracture, her age and activity level prior to the fall, I have recommended surgery in the form of a total hip arthroplasty for the left hip. I have discussed the procedure, risks and benefits, alternatives, potential complications and expected outcomes with the patient. The complications discussed include but are not limited to infection, injury to nerves and blood vessels, DVT and PE, femur fracture, limb length inequality, dislocation, implant failure, loosening, acetabular wear, osteolysis, periprosthetic femur fracture, heterotopic ossification, abductor weakness and a limp, incomplete relief of pain, incomplete return of function or motion, likely need for further surgery in future including revision, anesthetic/medical complications including heart attack, stroke, transfusion reactions and even . We discussed how any of these events can be devastating. We have discussed nonsurgical alternatives as well. We also discussed the postoperative course including the rehab and physical therapy required.? Patient understood the risks, agreed to proceed with surgery, signed the consent form and no guarantees or assurances were given or implied. The patient was brought to the operating room and a spinal anesthesia was administered by the advice clerk. The patient was then transferred onto the operating table and positioned in the right lateral decubitus position with the left hip facing upwards. All the bony prominences were well-padded. The left lower extremity was then prepped (prepped with isopropyl alcohol followed by chlorhexidine) and draped in the usual sterile fashion. The entire operative team used isolation suits and room traffic was controlled. The surgical landmarks and incision was marked over the skin with a marking pen. Ioban sterile drape was used to cover the operative site and isolate the perineum completely from the operative field. A preprocedure timeout was performed as per hospital protocol identifying the patient, correct surgery and correct site. Administration of prophylactic antibiotics (IV Ancef and vancomycin) was confirmed with the advice clerk.? A posterior approach was used to the left hip joint. The skin incision was made c
[2020-12-25 19:40] LABS: POC Glucose,Bedside 171 (70-110)
[2020-12-26] VITALS (7 sets, daily range): BP systolic 131–154; BP diastolic 76–93; PULSE 89–108; RESP 16–18; TEMP 36.4–37; O2SAT 93–97
--- NOTE | 2020-12-26 04:28 | PC.NURSE ---
Early in shift pt was restless r/t pain. New orders given for pain management. Pt is A&O x4, BLT lungs CTA, Bowel sounds hypo active in all 4 quadrants. Pt is on 2L NC w/continuous pulse ox. IV patent and infusing well, hunter patent and draining clear/yellow urine. Lt hip dressing remains C/D/I. Wedge in place. Pt denies headache, SOA, or N/V. VSS
[2020-12-26 06:54] LABS: Basophils % 0.2 % (0.1-2.0); Eosinophils # 0.1 K/mm3 (0.0-0.4); Eosinophils % 1.9 % (0.1-12.0); Hematocrit 31.3 % (37.0-47.0); Lymphocytes # 0.9 K/mm3 (0.7-4.5); Lymphocytes % 23.4 % (10-50); Mean Corpuscular HGB Conc 31.3 g/dL (31.8-35.4); Mean Corpuscular Hemoglobin 28.9 pg (27.0-31.2); Mean Corpuscular Volume 92.4 fl (81-99); Mean Platelet Volume 8.7 fl (7.4-10.4); Monocytes # 0.2 K/mm3 (0.1-1.0); Monocytes % 6.1 % (1.7-9.3); Neutrophils # 2.7 K/mm3 (1.8-7.8); Neutrophils % 68.4 % (37.0-80.0); Platelet Count 148 K/mm3 (142-424); Red Blood Count 3.38 M/mm3 (4.20-5.40); Red Cell Distribution Width 13.5 % (11.5-17.5); White Blood Count 3.9 K/mm3 (4.8-10.8)
[2020-12-26 07:05] LABS: POC Glucose,Bedside 118 (70-110)
[2020-12-26 07:11] LABS: Chloride 103 mmol/L (98-107); Hemoglobin 9.8 g/dL (12.2-16.2); Potassium 4.3 mmoL/L (3.5-5.1); Sodium 137 mmol/L (136-145)
[2020-12-26 07:14] LABS: Anion Gap 10.3 mEq/L (5-15); Blood Urea Nitrogen 11 mg/dl (7-17); Calcium 8.2 mg/dl (8.4-10.2); Carbon Dioxide 28 mmol/L (22.0-30.0); Creatinine Clearance Estimated 70 mL/min (50-200); Estimated Glomerular Filt Rate 101 ml/min (>60); GFR (African American) 122 ML/MIN (>60); Glucose 131 mg/dl (74-100)
--- NOTE | 2020-12-26 07:55 | SW/DCPLANNER ---
Addendum entered by Dorothy Driver 12/26/20 13:38: WENT IN TO SEE PATIENT TODAY WITH DR LABOY AND PATIENT HAS HAD PT/OT AND THERAPY STATES SHE IS SAFE TO RETURN HOME WITH HER SISTER TO PROVIDE 30/09 CARE.. WILL SET UP HOME HEALTH ONCE IT IS ORDERED BY MD... Original Note: PATIENT ADMITTED TO [facility] ON 12/24 AFTER SUSTAINING A FALL IN HER DRIVEWAY, SHE STATED SHE TRIPPED OVER HER DOGS.. HER REFERRAL WAS TRIGGERED FOR DISCHARGE PLANNING.. PATIENT RESIDES AT HOME WITH HER SPOUSE AND HAS A COMMERCIAL INSURANCE..I WILL SEE PATIENT TODAY AND SHE WHAT PATIENT WISHES TO DO ONCE SHE IS MEDICALLY READY FOR A DISPOSITION...
--- NOTE | 2020-12-26 08:06 | P.PN_ITS ---
[facility] Anesthesia Record Part II Discharge Time: 18:30 Destination: floor PACU nurse assessment reviewed?: Yes Patient Condition:: Good Anesthesia Complications:: None Swallowing reflex intact?: Yes Cyanosis?: No Blood Pressure: 131/80 Pulse Rate: 98 Temperature: 97.7 F Mental Status: Alert & Oriented Pain level:: 5 Nausea and/or vomitting:: None Intake, IV Amount: 2,500
--- NOTE | 2020-12-26 08:40 | HMH.PHACONS ---
- Pharmacy Consult Date: 12/26/20 Time: 08:40 Referring provider: NARDA Reason for Consult:: VANCOMYCIN POST-OP PROPHYLAXIS DOSING Allergies and ADEs:: Allergies Allergy/AdvReac Type Severity Reaction Status Date / Time Penicillins Allergy Verified 06/28/18 11:36 Home Medications:: Home Medications Medication Instructions Recorded Confirmed Type Levothyroxine Sodium 88 mcg PO DAILY 07/15/17 12/24/20 History [Levothyroxine 88mcg (0.088mg) Tab] Losartan Potassium 50 mg PO DAILY 12/24/20 12/24/20 History Metformin HCl [Metformin 1000mg 1,000 mg PO BID 12/24/20 12/24/20 History Tablets] Rosuvastatin Calcium 20 mg PO HS 12/24/20 12/24/20 History Height: 1.6 m Weight: 78.018 kg Laboratory Results:: Laboratory Results - last 24 hr 12/25/20 07:53: Blood Type A Positive, Antibody Screen Negative 12/25/20 11:02: POC Glucose 136 H 12/25/20 18:06: POC Glucose 103 12/25/20 19:23: POC Glucose 171 H 12/26/20 06:41: WBC 3.9 L D, RBC 3.38 L, Hgb 9.8 L D, Hct 31.3 L, MCV 92.4, MCH 28.9, MCHC 31.3 L, RDW 13.5, Plt Count 148, MPV 8.7, Neut % (Auto) 68.4, Lymph % (Auto) 23.4, [place] % (Auto) 6.1, Eos % (Auto) 1.9, Baso % (Auto) 0.2, Neut # (Auto) 2.7, Lymph # (Auto) 0.9, [place] # (Auto) 0.2, Eos # (Auto) 0.1, Baso # (Auto) 0.0 12/26/20 06:41: Sodium 137, Potassium 4.3, Chloride 103, Carbon Dioxide 28, Anion Gap 10.3, BUN 11, Creatinine 0.60, Estimated Creat Clear 70, Estimated GFR 101, Est GFR ( Amer) 122, Glucose 131 H, Calcium 8.2 L 12/26/20 06:57: POC Glucose 118 H Medical History: Reports:: Diabetes Mellitus Type 2, Hyperlipidemia, Hypertension Denies:: Cancer, Diabetes Mellitus Type 1, Internal Pacemaker, MRSA, Seizures Assessment and Plan (1) Hip fracture Status: Acute Qualifiers: Encounter type: initial encounter Fracture type: closed Laterality: left Qualified Code(s): S72.002A - Fracture of unspecified part of neck of left femur, initial encounter for closed fracture Category: Medical Code(s): S72.009A - Fracture of unspecified part of neck of unspecified femur, initial encounter for closed fracture (2) Hypothyroid Status: Chronic Qualifiers: Hypothyroidism type: acquired Qualified Code(s): E03.9 - Hypothyroidism, unspecified Category: Medical Code(s): E03.9 - Hypothyroidism, unspecified (3) Essential hypertension Status: Chronic Category: Medical Code(s): I10 - Essential (primary) hypertension (4) Type 2 diabetes mellitus Status: Chronic Qualifiers: Diabetes mellitus long chain beamer insulin use: without senior living use Diabetes mellitus complication status: without complication Qualified Code(s): E11.9 - Type 2 diabetes mellitus without complications Category: Medical Code(s): E11.9 - Type 2 diabetes mellitus without complications - Assessment and plan all Dx Assessment and Plan for all problems:: Subjective and Objective Data: This is a 65 year old female patient WITH A POST-HIP FRACTURE REPAIR. Measured serum creatinine (SCr) is 0.6 mg/dL. Given a height of 160 cm and a weight of 78.018 kg, estimated creatinine clearance is 116.7 mL/min (using the CrCl TBW body weight). The following targets were selected for dosing: - Desired AUC = 500 mcg*h/mL - Desired Cmax = 35 mcg/mL - Desired Cmin = 12.5 mcg/mL - Vd coefficient = 0.65 L/kg - Ke equation = CrCl*0.52700+0.0044 Calculations: Based on above, the following are calculated parameters for AUC-based vancomycin dosing in this patient: - Calculated Vd = 50.7117L - Calculated Ke = 0.101 inverse hours - Calculated half-life = 6.8 hours Prescribed Dosing: Empiric dose will be vancomycin IV 1250mg [id number] X2 DOSES PER DR NARDA GUSTAFSON. Which is predicted to achieve the following parameters: - Estimated AUC = 487 mcg*h/mL - Estimated Cmax = 35.1 mcg/mL - Estimated Cmin = 12.7 mcg/mL
--- NOTE | 2020-12-26 09:29 | P.PN_ITS ---
Internal Medicine - PN: Subj *Date: 12/26/20 *Time: 09:29 Exam Vital signs and Labs for Last 24 Hours: Temp Pulse Resp BP Pulse Ox 97.7 F 98 H 16 131/80 96 12/26/20 08:08 12/26/20 08:08 12/26/20 04:00 12/26/20 08:08 12/26/20 04:00 Laboratory Results - last 24 hr 12/25/20 11:02: POC Glucose 136 H 12/25/20 18:06: POC Glucose 103 12/25/20 19:23: POC Glucose 171 H 12/26/20 06:41: WBC 3.9 L D, RBC 3.38 L, Hgb 9.8 L D, Hct 31.3 L, MCV 92.4, MCH 28.9, MCHC 31.3 L, RDW 13.5, Plt Count 148, MPV 8.7, Neut % (Auto) 68.4, Lymph % (Auto) 23.4, [place] % (Auto) 6.1, Eos % (Auto) 1.9, Baso % (Auto) 0.2, Neut # (Auto) 2.7, Lymph # (Auto) 0.9, [place] # (Auto) 0.2, Eos # (Auto) 0.1, Baso # (Auto) 0.0 12/26/20 06:41: Sodium 137, Potassium 4.3, Chloride 103, Carbon Dioxide 28, Anion Gap 10.3, BUN 11, Creatinine 0.60, Estimated Creat Clear 70, Estimated GFR 101, Est GFR ( Amer) 122, Glucose 131 H, Calcium 8.2 L 12/26/20 06:57: POC Glucose 118 H I & O for Last 24 hours: Intake & Output 12/23/20 12/24/20 12/25/20 12/26/20 23:59 23:59 23:59 23:59 Intake Total 1246 / 1246 2500 / 2500 2500 / 2500 Output Total 1350 / 1350 1450 / 1450 675 / 675 Balance -104 / -104 1050 / 1050 1825 / 1825 Weight 69.853 kg 78.018 kg Microbiology Reports for the Last 24 Hours: Microbiology 12/23/20 23:43 Urine,Catheterized Urine Culture - Final Klebsiella oxytoca Assessment and Plan (1) Hip fracture Status: Acute Qualifiers: Encounter type: initial encounter Fracture type: closed Laterality: left Qualified Code(s): S72.002A - Fracture of unspecified part of neck of left femur, initial encounter for closed fracture Category: Medical Code(s): S72.009A - Fracture of unspecified part of neck of unspecified femur, initial encounter for closed fracture (2) Hypothyroid Status: Chronic Qualifiers: Hypothyroidism type: acquired Qualified Code(s): E03.9 - Hypothyroidism, unspecified Category: Medical Code(s): E03.9 - Hypothyroidism, unspecified (3) Essential hypertension Status: Chronic Category: Medical Code(s): I10 - Essential (primary) hypertension (4) Type 2 diabetes mellitus Status: Chronic Qualifiers: Diabetes mellitus nursing home insulin use: without janitorial assistant use Diabetes mellitus complication status: without complication Qualified Code(s): E11.9 - Type 2 diabetes mellitus without complications Category: Medical Code(s): E11.9 - Type 2 diabetes mellitus without complications
--- NOTE | 2020-12-26 09:37 | PC.NURSE ---
PT in room with pt.
--- NOTE | 2020-12-26 10:38 | HMH.OTEV ---
OT Inpatient Evaluation Rehab OT IP Evaluation Start: 12/25/20 18:53 Freq: ONCE Status: Complete Protocol: Document 12/26/20 10:29 [facility] (Rec: 12/26/20 10:37 [facility] [id number]) Rehab OT IP Assessment Subjective History Pt oriented x 3 on arrival. Pt agreeable to engage in therapy evaluation; pt eager to participate and go home. Pt was admitted via Ed on due to femoral neck fx of left hip. Pt was in her driveway and tripped over her dogs. Pt experienced immediate pain at left hip and was unable to stand. Pt required an Uncemented Total hip arthroplasty on 12/25/20. Pt reports prior to fall she lived at home with her . She claims she was independent with all ADLs and IADLs. Pt did not use AE during ambulation or ADLs. Subjective I am ready to get up. Pt completed bed mobility with min/mod assist x 2 to go from supine to sitting. Pt completed sit to stand from eob with mod assist x 2. Pt then sat back down at eob with min/mod assist. Pt stood from eob again and completed transfer from bed to chair with min assist x 2 and rolling walker. Pt sat down in chair with min assist x 2. Pt was left sitting in chair with call rowell and all other needs in reach. Pt was educated on hip precautions; pt verbalized understanding. Objective Patient Orientation Person,Place,Birthday Upper Extremity Gross ROM WFL Bed Mobility bed mobility-scooting,bed mobility - supine/sit,bed mobility - rolling Assist Level Moderate x 2 (50% assist) Transfer Training Sit/Stand Transfer Assist Level Moderate x 2 (50% assist) Chair Transfer Ability Minimal x 2 (25% assist), Mode
--- NOTE | 2020-12-26 12:01 | HMH.PTEV ---
Physical Therapy Evaluation Rehab PT IP Evaluation Start: 12/25/20 18:53 Freq: ONCE Status: Active Protocol: Document 12/26/20 11:21 [facility] (Rec: 12/26/20 12:01 [facility] [id number]) Subjective/History History History This is the initial evaluation for Jes Hayes. Pt is a 65 y/o female s/p L CORINNA. Pt fell at home and sustained a femoral neck fracture. Pt is stable but on meds for her blood pressure that make her sleepy. Pt was experiencing n/ v. Pt was accompanied by sister in the room. Pt does have post hip precautions. - note done by Nani Parkinson , SPT Subjective Subjective Pt reports that she fell and broke her hip while at home. Pt states she lives at home with her who is in worse health then she is. Pt reports she was very active before her accident. She states she took care of herself indepedently. Pt states she did not use any AD before accident. Rehab PT IP Eval Objective Appearance Patient Behavior Appropriate,Cooperative, Fatigued Patient Orientation Person,Place,Name,Birthday, Situation Difficulty following instructions none Speech Pattern Clear,Appropriate,Coherent Ambulation Patient Able to Ambulate Yes Ambulation Observation IP General Gait Pattern Observation Antalgic Gait,Wide Based Gait, Shuffling Step Ambulation Distance (feet) 5 Ambulation Assistive Device Rolling Walker Ambulation Ability Contact Guard/Hand Hold Balance Ability to Arise Able, uses arms to help Sitting Balance Leans or slides in chair Standing Balance Steady, wide stance Dynamic Sitting Balance Ability Fair Dynamic Standing Balance Ability Fair Transfers Bed Transfer Ability Moderate x 2 (50% assist) Chair Transfer Ability Moderate x 2 (50% assist) Sit to Stand Bed Transfer Ability Moderate x 2 (50% assist) Sit to Stand Chair Transfer Ability Moderate x 2 (50% assist) Rehab PT IP prob,goals,plan Problems Date of Evaluation: 12/26/20 PT IP Problems Bed Mobility,Transfers,Gait,
[2020-12-26 12:34] LABS: POC Glucose,Bedside 176 (70-110)
--- NOTE | 2020-12-26 13:26 | HMH.ORTHPN ---
Subjective Date: 12/26/20 Time: 12:00 Principal diagnosis: Fracture neck of femur, left hip Interval history: Patient is status post LEFT total hip arthroplasty for displaced subcapital femoral neck fracture, post op day #1. Patient is lying down on the bed and says she is doing well. Patient has minimal pain and says it's well-controlled with medication. She is complaining of some nausea but no vomiting. No history of any cough, chest pain, shortness of breath or palpitations. Patient says she is eating and drinking well. No history of any distal tingling or numbness. PN: Obj Ex Vital signs: Temp Pulse Resp BP Pulse Ox 98.2 F 94 H 16 144/89 H 96 12/26/20 12:00 12/26/20 12:00 12/26/20 12:00 12/26/20 12:00 12/26/20 12:00 Narrative: Laboratory Results - last 24 hr 12/25/20 18:06: POC Glucose 103 12/25/20 19:23: POC Glucose 171 H 12/26/20 06:41: WBC 3.9 L D, RBC 3.38 L, Hgb 9.8 L D, Hct 31.3 L, MCV 92.4, MCH 28.9, MCHC 31.3 L, RDW 13.5, Plt Count 148, MPV 8.7, Neut % (Auto) 68.4, Lymph % (Auto) 23.4, [place] % (Auto) 6.1, Eos % (Auto) 1.9, Baso % (Auto) 0.2, Neut # (Auto) 2.7, Lymph # (Auto) 0.9, [place] # (Auto) 0.2, Eos # (Auto) 0.1, Baso # (Auto) 0.0 12/26/20 06:41: Sodium 137, Potassium 4.3, Chloride 103, Carbon Dioxide 28, Anion Gap 10.3, BUN 11, Creatinine 0.60, Estimated Creat Clear 70, Estimated GFR 101, Est GFR ( Amer) 122, Glucose 131 H, Calcium 8.2 L 12/26/20 06:57: POC Glucose 118 H 12/26/20 12:26: POC Glucose 176 H Microbiology 12/23/20 23:43 Urine,Catheterized Urine Culture - Final Klebsiella oxytoca Exam: General appearance: alert, active, awake, no acute distress Cardiovascular: regular rate & rhythm, normal peripheral pulses Respiratory: No respiratory distress noted, speaks in full sentences ABD: soft and non tender Neuro: alert, awake, oriented x 3 Psych: Appropriate mood and affect Genitourinary: Catheter in situ. On examination of the lower extremities the limb lengths are equal. Thigh and calf are soft and nontender. On examination of the LEFT hip the dressings are clean, dry and intact. No evidence of any i bleeding noted. Distal pulses are 1+. Distal sensation is intact to light touch throughout. No motor deficits noted distally. - Urinary Catheter Management Rao Cath placed during this visit: no Progress Note: A&P (1) Hip fracture Status: Acute (2) Hypothyroid Status: Chronic (3) Essential hypertension Status: Chronic (4) Type 2 diabetes mellitus Status: Chronic Assessment and Plan for All Diagnoses:: I have reviewed the clinical findings and progress with the patient. Patient is doing fairly well from an orthopedic standpoint and reports no problems. Patient is mobilizing well weightbearing as tolerated on the LEFT side with the walker and to continue the same. Continue DVT prophylaxis-recommend DVT prophylaxis for 6 weeks postop. Continue abduction pillow when in bed and continue standard precautions for the posterior approach hip replacement. Discontinue IV fluids and the urinary catheter. Case management looking into discharge planning. Continue medical management as per Dr. William.
[2020-12-26 16:46] LABS: POC Glucose,Bedside 195 (70-110)
--- NOTE | 2020-12-26 16:55 | PC.NURSE ---
Routine reassessment completed. VSS. Breath sounds with crackles, throughout. Nurse encouraged IS use. Pt. v/u and began using IS. no further acute changes noted from previous assessment, Left hip dressing remains, C/D/I. Pt. rates pain at 6/10 see MAR for medications given. Pt. tolerating pain medication well. O2 sats at 97% on 3L. Will attempt to wean off O2 tonight or tomorrow am, as pt. drops to 79% when on RA, Pt. denies needs, call light within reach, visitor remains in room, will continue to monitor.
--- NOTE | 2020-12-26 18:07 | HMH.ACPN2 ---
Internal Medicine - PN: Subj *Date: 12/26/20 *Time: 18:07 Interval history: Requiring 2 L nasal cannula oxygen this morning for sats in the mid 90s. Desats when she gets pain medication. Pain difficult to control overnight after surgery. She reports the nerve block did not work. Denies emesis or diarrhea, nauseous with pain medication. Still adamant about going home and doing rehab as an outpatient. Exam Vital signs and Labs for Last 24 Hours: Temp Pulse Resp BP Pulse Ox 97.6 F 98 H 16 145/89 H 97 12/26/20 16:25 12/26/20 16:25 12/26/20 16:25 12/26/20 16:25 12/26/20 16:25 Laboratory Results - last 24 hr 12/25/20 18:06: POC Glucose 103 12/25/20 19:23: POC Glucose 171 H 12/26/20 06:41: WBC 3.9 L D, RBC 3.38 L, Hgb 9.8 L D, Hct 31.3 L, MCV 92.4, MCH 28.9, MCHC 31.3 L, RDW 13.5, Plt Count 148, MPV 8.7, Neut % (Auto) 68.4, Lymph % (Auto) 23.4, [place] % (Auto) 6.1, Eos % (Auto) 1.9, Baso % (Auto) 0.2, Neut # (Auto) 2.7, Lymph # (Auto) 0.9, [place] # (Auto) 0.2, Eos # (Auto) 0.1, Baso # (Auto) 0.0 12/26/20 06:41: Sodium 137, Potassium 4.3, Chloride 103, Carbon Dioxide 28, Anion Gap 10.3, BUN 11, Creatinine 0.60, Estimated Creat Clear 70, Estimated GFR 101, Est GFR ( Amer) 122, Glucose 131 H, Calcium 8.2 L 12/26/20 06:57: POC Glucose 118 H 12/26/20 12:26: POC Glucose 176 H 12/26/20 16:39: POC Glucose 195 H I & O for Last 24 hours: Intake & Output 12/23/20 12/24/20 12/25/20 12/26/20 23:59 23:59 23:59 23:59 Intake Total 1246 / 1246 2500 / 2500 2720 / 2720 Output Total 1350 / 1350 1450 / 1450 1075 / 1075 Balance -104 / -104 1050 / 1050 1645 / 1645 Weight 69.853 kg 78.018 kg Microbiology Reports for the Last 24 Hours: Microbiology 12/23/20 23:43 Urine,Catheterized Urine Culture - Final Klebsiella oxytoca Narrative: - Constitutional no acute distress, stable on 2L NC, obese - *Routine HEENT Exam Head: Present: normocephalic Eye: Present: EOMI, PERRL ENT: Present: mucous membranes moist - *Routine Neck Exam Present: supple. Absent: lymphadenopathy - *Routine Respiratory Exam Present: CTA bilaterally - *Routine Cardiovascular Exam Present: RRR - *Routine Abdominal Exam Present: soft, normoactive bowel sounds. Absent: tenderness - *Routine Extremities Exam Absent: cyanosis, clubbing, edema; Left leg equal length to right, left hip TTP - *Routine Skin Exam Present: warm. Absent: rash - *Routine Neurological Exam Present: alert, oriented X3 Assessment and Plan (1) Hip fracture Status: Acute Qualifiers: Encounter type: initial encounter Fracture type: closed Laterality: left Qualified Code(s): S72.002A - Fracture of unspecified part of neck of left femur, initial encounter for closed fracture Category: Medical Code(s): S72.009A - Fracture of unspecified part of neck of unspecified femur, initial encounter for closed fracture (2) Hypothyroid Status: Chronic Qualifiers: Hypothyroidism type: acquired Qualified Code(s): E03.9 - Hypothyroidism, unspecified Category: Medical Code(s): E03.9 - Hypothyroidism, unspecified (3) Essential hypertension Status: Chronic Category: Medical Code(s): I10 - Essential (primary) hypertension (4) Type 2 diabetes mellitus Status: Chronic Qualifiers: Diabetes mellitus middle or intermediate school principal insulin use: without mcfp use Diabetes mellitus complication status: without complication Qualified Code(s): E11.9 - Type 2 diabetes mellitus without complications Category: Medical Code(s): E11.9 - Type 2 diabetes mellitus without complications - Assessment and plan all Dx Assessment and Plan for all problems:: 65 yo F with left hip fracture. S/p left total hip arthroplasty. Tolerated well. Pain better controlled this morning. Awaiting PT eval to assist with placement recs. Full code regular diet resume ceftriaxone for UTI, will need PO meds at DC continu
--- NOTE | 2020-12-26 18:20 | PC.NURSE ---
IV noted to be leaking. Nurse removed dressing to visualize site, IV to be pulled out slightly, and area above IV is hard and cool to the touch. Nurse attempted to flush IV, remains leaking. IV pulled, and nurse remains in room attempting to obtain IV access.
[2020-12-26 20:19] LABS: POC Glucose,Bedside 168 (70-110)
[2020-12-27 04:00] VITALS: BP 139/81; PULSE 88; RESP 18; TEMP 36.7; O2SAT 97
--- NOTE | 2020-12-27 04:30 | PC.NURSE ---
Pt has slept in intervals this shift. Pt A&O x4, BLT lungs CTA, Bowel sounds present in all 4 quadrants. Pt is on 2L NC, Pt IV infiltrated at the beginning of the shift, MD orders obtained for PO meds. Pt is up to the bathroom x1 assistance Pt medicated for pain per MAR. Pt denies SOA, headache, or N/V. VSS
[2020-12-27 06:11] LABS: POC Glucose,Bedside 164 (70-110)
[2020-12-27 06:57] LABS: Basophils % 0.5 % (0.1-2.0); Eosinophils # 0.1 K/mm3 (0.0-0.4); Eosinophils % 1.4 % (0.1-12.0); Hematocrit 31.5 % (37.0-47.0); Hemoglobin 9.8 g/dL (12.2-16.2); Lymphocytes # 1.1 K/mm3 (0.7-4.5); Lymphocytes % 19.6 % (10-50); Mean Corpuscular HGB Conc 31.1 g/dL (31.8-35.4); Mean Corpuscular Hemoglobin 28.7 pg (27.0-31.2); Mean Corpuscular Volume 92.2 fl (81-99); Mean Platelet Volume 9.2 fl (7.4-10.4); Monocytes # 0.3 K/mm3 (0.1-1.0); Monocytes % 4.8 % (1.7-9.3); Neutrophils # 4.2 K/mm3 (1.8-7.8); Neutrophils % 73.8 % (37.0-80.0); Platelet Count 154 K/mm3 (142-424); Red Blood Count 3.42 M/mm3 (4.20-5.40); Red Cell Distribution Width 13.8 % (11.5-17.5); White Blood Count 5.8 K/mm3 (4.8-10.8)
[2020-12-27 07:26] LABS: Chloride 100 mmol/L (98-107); Potassium 4.2 mmoL/L (3.5-5.1); Sodium 138 mmol/L (136-145)
[2020-12-27 07:29] LABS: Anion Gap 12.2 mEq/L (5-15); Blood Urea Nitrogen 8 mg/dl (7-17); Calcium 9.4 mg/dl (8.4-10.2); Carbon Dioxide 30 mmol/L (22.0-30.0); Creatinine Clearance Estimated 70 mL/min (50-200); Estimated Glomerular Filt Rate 124 ml/min (>60); GFR (African American) 150 ML/MIN (>60); Glucose 155 mg/dl (74-100)
[2020-12-27 08:00] VITALS: O2SAT 98
--- NOTE | 2020-12-27 08:02 | CT_ITS ---
PROCEDURE INFORMATION: Exam: CTA Chest With Contrast Exam date and time: 12/27/2020 8:02 AM Age: 65 years old Clinical indication: Dyspnea; Additional info: Dyspnea, PT had hip replacement SX yesterday TECHNIQUE: Imaging protocol: Computed tomographic angiography of the chest with contrast. 3D rendering (Not supervised by radiologist): MIP and/or 3D reconstructed images were created by the technologist. Radiation optimization: All CT scans at this facility use at least one of these dose optimization techniques: automated exposure control; mA and/or kV adjustment per patient size (includes targeted exams where dose is matched to clinical indication); or iterative reconstruction. Contrast material: ISOVUE 370; Contrast volume: 50 ml; Contrast route: INTRAVENOUS (IV); COMPARISON: CR XR CHEST AP 12/23/2020 11:11 PM FINDINGS: Pulmonary arteries: No pulmonary emboli identified. Aorta: Unremarkable. No aortic aneurysm. No aortic dissection. Lungs: Patchy ground-glass and consolidative airspace opacities. Bilateral lower lobe atelectasis. Pleural spaces: Trace bilateral pleural effusions. Heart: Coronary artery calcification. Lymph nodes: Unremarkable. No enlarged lymph nodes. Spleen: Calcified splenic granulomas. Bones/joints: Unremarkable. No acute fracture. Soft tissues: Unremarkable. IMPRESSION: 1. No pulmonary emboli identified. 2. Patchy ground-glass and consolidative airspace opacities, some of which is likely reflective of atelectasis, though superimposed aspiration or pneumonia is difficult to exclude.
--- NOTE | 2020-12-27 08:12 | CA_ITS ---
APPROVED REPORT Bilateral Lower Extremity Venous Study for DVT. Senior Capital Markets Specialist: ASA Indications Lower Extremity Edema: Bilateral suspect DVT Risk Factors Trauma Post OP Patient fell at home 12/25/20 resulting in a fractured left hip. Lt hip surgery 12/25/20. Vein Imaging CFV (R): compressive, spontaneous, phasic, augmentation FEM (R): compressive, spontaneous, phasic, augmentation POP (R): compressive, spontaneous, phasic, augmentation PTV (R): Compressible Peroneals (R):Compressible CFV (L): compressive, spontaneous, phasic, augmentation FEM (L): compressive, spontaneous, phasic, augmentation POP (L): compressive, spontaneous, phasic, augmentation PTV (L): Compressible Peroneals (L):Compressible Findings No evidence of DVT or superficial thrombophlebitis in the veins scanned of the right lower extremity. No evidence of DVT or superficial thrombophlebitis in the veins scanned of the left lower extremity. Conclusion No evidence of DVT or superficial thrombophlebitis in the veins scanned of the right lower extremity. No evidence of DVT or superficial thrombophlebitis in the veins scanned of the left lower extremity. Electronically signed by : Filiberto Vizcarra MD 12/27/2020 18:37:12
--- NOTE | 2020-12-27 08:15 | PC.NURSE ---
O2 saturation on Room Air is at 86%.
[2020-12-27 08:16] VITALS: O2SAT 86
--- NOTE | 2020-12-27 09:18 | HMH.ORTHPN ---
Subjective Date: 12/27/20 <Rhona Castillo - 12/27/20 09:27> Time: 08:45 <Rhona Castillo - 12/27/20 09:27> Principal diagnosis: Fracture neck of femur, left hip <Rhona Castillo - 12/27/20 09:27> Interval history: Patient is status post LEFT total hip arthroplasty for displaced subcapital femoral neck fracture, post op day #2. Patient is lying down on the bed this morning. Her [id number] is at the bedside. She reports abdominal pain this morning that she attributes to gas. She reports that she is actively passing gas but has not had a bowel movement since surgery. She is urinating well and reports that she has been eating and drinking well. Patient has minimal hip pain and says it's well-controlled with medication. She reports that physical therapy has been going well and she has been up to walk and to the bedside chair several times without problem. She is complaining of some nausea but no vomiting. No history of any cough, chest pain, shortness of breath or palpitations. No history of any distal tingling or numbness. <Rhona Castillo - 12/27/20 09:34> PN: Obj Ex Vital signs: Temp Pulse Resp BP Pulse Ox 98.1 F 88 18 139/81 86 L 12/27/20 04:00 12/27/20 04:00 12/27/20 04:00 12/27/20 04:00 12/27/20 08:16 <SzymanskiDeni Sherif - 12/27/20 15:09> Temp Pulse Resp BP Pulse Ox 98.1 F 88 18 139/81 86 L 12/27/20 04:00 12/27/20 04:00 12/27/20 04:00 12/27/20 04:00 12/27/20 08:16 <Rhona Castillo - 12/27/20 09:27> Narrative: Laboratory Results - last 24 hr 12/26/20 16:39: POC Glucose 195 H 12/26/20 20:12: POC Glucose 168 H 12/27/20 05:56: POC Glucose 164 H 12/27/20 06:33: WBC 5.8 D, RBC 3.42 L, Hgb 9.8 L, Hct 31.5 L, MCV 92.2, MCH 28.7, MCHC 31.1 L, RDW 13.8, Plt Count 154, MPV 9.2, Neut % (Auto) 73.8, Lymph % (Auto) 19.6, [place] % (Auto) 4.8, Eos % (Auto) 1.4, Baso % (Auto) 0.5, Neut # (Auto) 4.2, Lymph # (Auto) 1.1, [place] # (Auto) 0.3, Eos # (Auto) 0.1, Baso # (Auto) 0.0 12/27/20 06:33: Sodium 138, Potassium 4.2, Chloride 100, Carbon Dioxide 30, Anion Gap 12.2, BUN 8 D, Creatinine 0.50 L, Estimated Creat Clear 70, Estimated GFR 124, Est GFR ( Amer) 150 D, Glucose 155 H, Calcium 9.4 12/27/20 11:25: POC Glucose 205 H Microbiology 12/23/20 23:43 Urine,Catheterized Urine Culture - Final Klebsiella oxytoca <Deni Szymanski - 12/27/20 15:09> - Constitutional no acute distress, cooperative <Rhona Castillo 12/27/20 09:33> Comments: alert, awake, active <Rhona Castillo 12/27/20 09:33> - Routine Respiratory Exam Absent: respiratory distress <Rhona Castillo 12/27/20 09:33> Comments: speaks in full sentences <Rhona Castillo 12/27/20 09:33> - Routine Cardiovascular Exam Present: RRR <Rhona Castillo 12/27/20 09:33> Comments: normal peripheral pulses <Rhona Castillo 12/27/20 09:33> - Routine Abdominal Exam Present: soft. Absent: tenderness, distended <Rhona Castillo 12/27/20 09:33> - Routine Extremities Exam Comments: Upon examination of the lower extremities: The limb lengths are equal. Thigh and calf are soft and nontender. Diana's sign is negative. Upon examination of the left hip the dressing is clean, dry and intact. Posterior tibial pulse 2+; dorsalis pedis pulse 1+. Sensation to light touch is grossly intact throughout. No motor deficits noted distally. <Rhona Castillo - 12/27/20 09:33> - Routine Neurological Exam Present: alert, oriented X3, moving all extremities, normal tone. Absent: motor deficit <Rhona Castillo - 12/27/20 09:33> - Routine Psychiatric Exam Present: normal affect, cooperative <Rhona Castillo - 12/27/20 09:33> - Urinary Catheter Management Rao Cath placed during this visit: no <Deni Szymanski - 12/27/20 15:09> no <Rhona Castillo - 12/27/20 09:36> Progress Note: A&P (1) Hip fracture Status: Acute (2) Hypothyroid
--- NOTE | 2020-12-27 10:35 | PC.NURSE ---
Pt. to CT with CT staff, via stretcher.
--- NOTE | 2020-12-27 10:58 | PC.NURSE ---
Pt. back from CT.
[2020-12-27 11:32] LABS: POC Glucose,Bedside 205 (70-110)
[2020-12-27 16:00] VITALS: BP 119/73; PULSE 89; RESP 16; TEMP 36.7; O2SAT 97
--- NOTE | 2020-12-27 16:30 | PC.NURSE ---
Routine reassessment completed. VSS. O2 saturation noted to be at 97%. NC removed, O2 saturations at 94%, will see how pt. tolerates RA, and continue to monitor O2 sats. Occasional gas pain remains in RUQ, Dressing on left hip changed by Dr. Szymanski earlier, remains C/D/I. No further acute changes noted from previous assessment. FSBS at 196, 2 units insulin given, see MAR. Pt. denies needs, will continue to monitor.
[2020-12-27 17:08] LABS: POC Glucose,Bedside 196 (70-110)
--- NOTE | 2020-12-27 17:15 | HMH.ACPN2 ---
Internal Medicine - PN: Subj *Date: 12/27/20 *Time: 17:15 Interval history: Feels good but has a new O2 requirement... Exam Vital signs and Labs for Last 24 Hours: Temp Pulse Resp BP Pulse Ox 98.0 F 89 16 119/73 97 12/27/20 16:00 12/27/20 16:00 12/27/20 16:00 12/27/20 16:00 12/27/20 16:00 Laboratory Results - last 24 hr 12/26/20 20:12: POC Glucose 168 H 12/27/20 05:56: POC Glucose 164 H 12/27/20 06:33: WBC 5.8 D, RBC 3.42 L, Hgb 9.8 L, Hct 31.5 L, MCV 92.2, MCH 28.7, MCHC 31.1 L, RDW 13.8, Plt Count 154, MPV 9.2, Neut % (Auto) 73.8, Lymph % (Auto) 19.6, [place] % (Auto) 4.8, Eos % (Auto) 1.4, Baso % (Auto) 0.5, Neut # (Auto) 4.2, Lymph # (Auto) 1.1, [place] # (Auto) 0.3, Eos # (Auto) 0.1, Baso # (Auto) 0.0 12/27/20 06:33: Sodium 138, Potassium 4.2, Chloride 100, Carbon Dioxide 30, Anion Gap 12.2, BUN 8 D, Creatinine 0.50 L, Estimated Creat Clear 70, Estimated GFR 124, Est GFR ( Amer) 150 D, Glucose 155 H, Calcium 9.4 12/27/20 11:25: POC Glucose 205 H 12/27/20 16:38: POC Glucose 196 H I & O for Last 24 hours: Intake & Output 12/25/20 12/26/20 12/27/20 12/28/20 11:59 11:59 11:59 11:59 Intake Total 720 / 720 5100 / 5100 360 / 360 120 / 120 Output Total 1175 / 1175 1375 / 1375 3850 / 3850 1500 / 1500 Balance -455 / -455 3725 / 3725 -3490 / -3490 -1380 / -1380 - Constitutional no acute distress - *Routine HEENT Exam Head: Present: normocephalic Eye: Present: EOMI, PERRL ENT: Present: mucous membranes moist - *Routine Neck Exam Present: supple. Absent: lymphadenopathy - *Routine Respiratory Exam Present: CTA bilaterally - *Routine Cardiovascular Exam Present: RRR - *Routine Abdominal Exam Present: soft, normoactive bowel sounds. Absent: tenderness - *Routine Extremities Exam Present: edema. Absent: cyanosis, clubbing Comments: Surgical incision looks good - *Routine Skin Exam Present: warm. Absent: rash - *Routine Neurological Exam Present: alert, oriented X3 Assessment and Plan (1) Hip fracture Status: Acute Qualifiers: Encounter type: initial encounter Fracture type: closed Laterality: left Qualified Code(s): S72.002A - Fracture of unspecified part of neck of left femur, initial encounter for closed fracture Category: Medical Code(s): S72.009A - Fracture of unspecified part of neck of unspecified femur, initial encounter for closed fracture (2) Hypothyroid Status: Chronic Qualifiers: Hypothyroidism type: acquired Qualified Code(s): E03.9 - Hypothyroidism, unspecified Category: Medical Code(s): E03.9 - Hypothyroidism, unspecified (3) Essential hypertension Status: Chronic Category: Medical Code(s): I10 - Essential (primary) hypertension (4) Type 2 diabetes mellitus Status: Chronic Qualifiers: Diabetes mellitus buttermaker insulin use: without buttermaker use Diabetes mellitus complication status: without complication Qualified Code(s): E11.9 - Type 2 diabetes mellitus without complications Category: Medical Code(s): E11.9 - Type 2 diabetes mellitus without complications (5) Pneumonitis Status: Acute Category: Medical Code(s): J18.9 - Pneumonia, unspecified organism - Assessment and plan all Dx Assessment and Plan for all problems:: CTA and venous doppler negative... lasix given and watch overnight... one more PT session ... consider DC if able in am
[2020-12-27 20:00] VITALS: BP 114/74; PULSE 94; RESP 18; TEMP 36.8; O2SAT 97; O2SAT 99
[2020-12-27 20:33] VITALS: RESP 18
[2020-12-27 20:44] LABS: POC Glucose,Bedside 155 (70-110)
[2020-12-28 03:08] VITALS: RESP 18
[2020-12-28 04:16] VITALS: BP 121/79; PULSE 88; RESP 16; TEMP 36.9; O2SAT 91
--- NOTE | 2020-12-28 05:09 | PC.NURSE ---
PT HAS NOT RESTED WELL THIS SHIFT. SHE HAS AMBULATED SEVERAL TIMES IN HER ROOM AND ONCE IN THE HALLWAY. GAIT WAS STEADY AND BALANCE WAS GOOD. VS REMAIN STABLE. LEFT HIP DRESSING REMAINS CDI. O2 SAT ARE WITHIN NORMAL RANGE ON 1L/NC WHILE AT REST AND WHEN AMBULATING. WHEN PT IS SLEEPING, SATS ARE NOTED TO DROP TO 85-89%. PT REPORTS USING HER INCENTIVE SPIROMETER. WILL CONTINUE TO MONITOR.
[2020-12-28 06:34] LABS: POC Glucose,Bedside 143 (70-110)
[2020-12-28 06:41] LABS: Chloride 95 mmol/L (98-107); Sodium 137 mmol/L (136-145)
[2020-12-28 06:42] LABS: Potassium 3.2 mmoL/L (3.5-5.1)
[2020-12-28 06:45] LABS: Anion Gap 11.2 mEq/L (5-15); Blood Urea Nitrogen 12 mg/dl (7-17); Calcium 9.2 mg/dl (8.4-10.2); Carbon Dioxide 34 mmol/L (22.0-30.0); Creatinine Clearance Estimated 70 mL/min (50-200); Estimated Glomerular Filt Rate 101 ml/min (>60); GFR (African American) 122 ML/MIN (>60); Glucose 151 mg/dl (74-100)
[2020-12-28 06:48] VITALS: RESP 18
--- NOTE | 2020-12-28 07:48 | CA_ITS ---
APPROVED REPORT EXAM: Comprehensive 2D, Doppler, and color-flow Echocardiogram Concrete Laborer: Bety Rodriguez RT(R) Ht: 5 ft 3 in Wt: 172lbs BSA: 1.81 BP: 119/73 mmHg Indications: left hip fracture, HTN, DM, JOYNER, hyperlipidemia 2D Dimensions LVOT 2.11 cm (M/F) 1.5-2.5 M-Mode Dimensions RVDd 2.50 cm (0.9-2.6) LA Diam 2.69 cm (1.9-4.0) LVDd 4.04 cm (3.5-5.7) Ao Diam 2.65 cm (2.0-3.7) LVDs 3.29 cm (3.5-5.7) IVSd 0.72 cm (0.6-1.1) PWd 0.97 cm (0.6-1.1) EF (Teich) 38.90% FS 18.60% EDV (Teich) 71.70 mL ESV (Teich) 43.80 mL LV Diastology E Decel Time 210.00 (160-240 msec) E/A Ratio 0.9 MED E' 6.20 (< 7 cm/sec) E'/MED E' Ratio 12.11 (>14) LAT E' 7.90 (<10 cm/sec) E/LAT E' Ratio 9.51 (>14) Mitral Valve MV E Max Kaushal. 75.00 (40-130 cm/s) MV A Velocity 88.00 (40-130 cm/s) E/A Ratio 0.86 MV Decel. Time 210.00 (160-240 ms) MV PHT 62.00 ms Left Ventricle Left atrium is qualitatively mildly enlarged, left ventricle is normal size, mild concentric left ventricular hypertrophy, visually estimated ejection fraction 55% with no regional wall motion abnormality, grade 1 diastolic dysfunction seen without tissue Doppler evidence of raise left atrial pressure. Right Ventricle Right atrium and right ventricle are normal size and contractility. Aortic Valve Aortic valve is minimally thickened and fibrosed, there is no aortic stenosis or aortic insufficiency. Mitral Valve Mitral valve is grossly normal, there is trace mitral regurgitation. Tricuspid Valve Tricuspid grossly normal, there is trace tricuspid regurgitation, tricuspid regurgitation jet velocity is inadequate for calculation of the right ventricular systolic pressure. Pulmonic Valve Pulmonic valve is poorly visualized. Great Vessels Aortic root is normal size. Inferior vena cava is poorly visualized. Pericardium No significant pericardial effusion noted. Conclusion 1. Mildly enlarged left atrium, normal left ventricular size, mild concentric left ventricular hypertrophy, visually estimated ejection fraction 55% with no regional wall motion abnormality, grade 1 diastolic dysfunction seen without tissue Doppler evidence of raise left atrial pressure. 2. Trace mitral and tricuspid regurgitation. 3. No significant pericardial effusion noted. Electronically signed by : Rogelio Mabry MD 12/28/2020 13:48:22
[2020-12-28 08:00] VITALS: O2SAT 90
--- NOTE | 2020-12-28 08:56 | HMH.DCSUM ---
General - General Admission date:: 12/24/20 Discharge date: 12/28/20 HPI HPI: Mrs. Hayes is a 65 yo F who presented to the ER via EMS after sustaining a fall at home in her driveway. She reports she was walking in her driveway when her dogs tripped her and she fell forward. She developed rather acute severe pain in her left hip and was unable to stand. Her family helped her up but the pain was so severe she vomitied and still unable to stand/bear weight to left leg. Pt unable to move left leg, it appears shortened but not rotated. Pedal pulse 2+, analytics specialist < 3sec. On assessment this morning, she continues to complain of left leg pain. Is nausea so she just had some pain medication. Denies chest pain or shortness of breath however. No other significant trauma, did not hit her head. Of note, A1c added to morning labs showing diabetes poorly controlled. A1c greater than 11. Patient has been on Metformin for years but denies ariel symptoms of uncontrolled diabetes including polyuria, nocturia. No GI upset from Metformin. at bedside. Patient stated during interview that she wants to go home after surgery and would like to rehab as an outpatient. Brief discussion that we will make further plans after surgery and once physical therapy is able to assess her. Hospital Course Hospital Course: Patient was admitted, underwent hip arthroplasty successfully and did well with this. The following day she did have an oxygen requirement which was new for her. Because of her recent surgery and new oxygen requirement CTA of chest was done, venous Dopplers of legs were done which were negative for PE and VTE respectively. Patient was diuresed and did very nicely with this and this morning she is doing well without oxygen requirement noted. Very minimal hypokalemia on labs. Echocardiogram was done today which shows no significant problems on preliminary report. Glucose has been better controlled, and she feels much better. PT and OT evaluated her, feel like she will do well with home health at home, she plans to go home with her sister who is very knowledgeable about rehabilitation and nursing care issues. Plan will be as follows: 1. Home health evaluation for PT/OT. 2. We will schedule follow-up via telemedicine in our office on Friday to reevaluate patient. 3. Glucose control has been suboptimal given her increased A1c. She is aware of this and will try to make some changes to her diet. We will continue Metformin but add Januvia today. I have also prescribed a new glucometer and she will record her glucose levels for us on her telemedicine visit on Friday. 4. Short-term course of opiates for pain control status post surgery. 5. Address any residual lung symptoms or final echo report as an outpatient. Objective Vital signs: Temp Pulse Resp BP Pulse Ox 98.4 F 88 18 121/79 91 L 12/28/20 04:16 12/28/20 04:16 12/28/20 06:48 12/28/20 04:16 12/28/20 04:16 no acute distress - *Routine HEENT Exam Head: Present: normocephalic Eye: Present: EOMI, PERRL ENT: Present: mucous membranes moist - *Routine Neck Exam Present: supple - *Routine Respiratory Exam Present: CTA bilaterally - *Routine Cardiovascular Exam Present: RRR - *Routine Abdominal Exam Present: soft, normoactive bowel sounds. Absent: tenderness - *Routine Extremities Exam Absent: cyanosis, clubbing, edema Comments: No leg edema, legs are equal length, no swelling. Good distal pulses. Surgical dressing looks good. See Ortho note for details - *Routine Skin Exam Present: warm. Absent: rash - Detailed Eye Exam Eyelids: Bilateral normal inspection Results Labs on day of discharge: Labs from last 24 hours 12/28/20 12/28/20 12/27/20 06:26 06:16 20:35 Sodium 137 Potassium 3.2 L D Chloride 95 L Carbon Dioxide 34 H Anion Gap 11.2 BUN 12 D Creatinine 0.60 Estimated Creat Clear 70 Est
[2020-12-28 09:00] VITALS: BP 118/75; PULSE 71; RESP 17; TEMP 36.7; O2SAT 92
--- NOTE | 2020-12-28 09:22 | P.PN_ITS ---
Subjective Date: 12/28/20 Time: 08:45 Principal diagnosis: Fracture neck of femur, left hip Interval history: Patient is status post LEFT total hip arthroplasty for displaced subcapital femoral neck fracture, post op day #3. Patient is lying down on the bed this morning. She reports that her abdominal pain and nausea have resolved. She has been eating and drinking well. Patient has minimal hip pain and says it's well- controlled with medication. She reports that physical therapy has been going well. No history of any cough, chest pain, shortness of breath or palpitations. No history of any distal tingling or numbness. PN: Obj Ex Vital signs: Temp Pulse Resp BP Pulse Ox 98.4 F 88 18 121/79 91 L 12/28/20 04:16 12/28/20 04:16 12/28/20 06:48 12/28/20 04:16 12/28/20 04:16 - Constitutional no acute distress, cooperative Comments: alert, awake, active - Routine Respiratory Exam Absent: respiratory distress Comments: speaks in full sentences, symmetric chest movement - Routine Cardiovascular Exam Present: RRR Comments: normal peripheral pulses - Routine Abdominal Exam Present: soft. Absent: tenderness, distended - Routine Extremities Exam Comments: Upon examination of the lower extremities: Limb lengths are equal. Thigh and calf are soft and nontender; Homans' sign is negative, no clinical evidence of DVT noted. Dressing present over the left hip clean, dry, and intact. No evidence of bleeding or drainage noted. Posterior tibial pulse 2+; dorsalis pedis pulse 1+. Sensation to light touch is grossly intact throughout. No motor deficits noted distally. - Routine Neurological Exam Present: alert, oriented X3, moving all extremities, normal tone. Absent: motor deficit - Routine Psychiatric Exam Present: normal affect, cooperative - Urinary Catheter Management Rao Cath placed during this visit: no Progress Note: A&P (1) Hip fracture Status: Acute (2) Hypothyroid Status: Chronic (3) Essential hypertension Status: Chronic (4) Type 2 diabetes mellitus Status: Chronic (5) Pneumonitis Status: Acute (6) Hypoxia Status: Acute Assessment and Plan for All Diagnoses:: I have reviewed the clinical findings and progress with the patient. She is doing well from an orthopedic standpoint and reports no problems with her hip. Her dressing is clean, dry, and intact. She is mobilizing well and weightbearing as tolerated on the left side. Continue PT. Continue DVT prophylaxis for 6-week postop. Continue abduction pillow when in bed for 6 weeks postop. Continue standard precautions for posterior approach hip placement. She can be discharged from an orthopedic standpoint when medically appropriate. Continue medical management as per Dr. William. Follow-up in the office in 2 weeks with check x-ray.
--- NOTE | 2020-12-28 09:41 | HMH.PHAINT ---
MEDICATION DISCHARGE EDUCATION COMPLETE. PATIENT DID NOT HAVE ANY QUESTIONS
--- NOTE | 2020-12-28 10:00 | PC.NURSE ---
Three individual pulse ox readings taken on room air: 90, 92, 93
--- NOTE | 2020-12-28 10:18 | SW/DCPLANNER ---
SET UP HOME HEALTH WITH [facility] FOR THIS PATIENT... PATIENT PRESENTED INTO THE HOSPITAL WITH A HIP FRACTURE, SHE STATED SHE IS GOING TO BE STAYING WITH HER SISTER UNTIL SHE CAN GET UP ON HER FEET AGAIN.. SHE HAS A COMMERCIAL INSURANCE.. I CALLED [facility] THIS MORNING TO LET THEM KNOW SHE IS DISCHARGING HOME AND FOR SERVICES TO START SOON POSSIBLE...PATIENT HAS ALL THE EQUIPMENT SHE NEEDS AT HOME... THERE WAS SOME QUESTION ABOUT WHETHER SHE NEEDED HOME 02 AND HER SATS WERE BETTER AND SHE DIDN'T QUALIFY.
== END 2020-12-28 11:45 | disposition home health service (06) | DRG 522 ==
LOC: ER 21:28 → 2ND 12-24 01:01 → OB 12-24 22:19
PROVIDERS: Orthopaedic Surgery; Admitting Provider Internal Medicine Adolescent Medicine; Emergency Provider Emergency Medicine; PCP Internal Medicine Adolescent Medicine; Visit Provider Internal Medicine Adolescent Medicine
PROC: (CPT 27130; principal; 2020-12-25 12:35)
DX: S72.012A Unspecified intracapsular fracture of left femur, initial encounter for closed fracture (principal); W01.0XXA Fall on same level from slipping, tripping and stumbling without subsequent striking against object, initial encounter; Y92.014 Private driveway to single-family (private) house as the place of occurrence of the external cause; E11.9 Type 2 diabetes mellitus without complications; E03.9 Hypothyroidism, unspecified; I10 Essential (primary) hypertension; Z79.84 Long term (current) use of oral hypoglycemic drugs; E78.5 Hyperlipidemia, unspecified
CPT/HCPCS: 27130; 36415; 70450; 71045; 71275; 72125; 73502; 80048; 80053; 81001; 82962; 83036; 83735; 84145; 84484; 85025; 85610; 85651; 85730; 86140; 86850; 87086; 87088; 87186; 93005; 93306; 93970; 96365; 96374; 96375; 97116; 97162; 97166; 97530; 99284; C1713; C1776; C9803; J2405; J2704; J3370; Q9967; U0003; U0005

== ENCOUNTER → 2021-01-09 11:55 | Outpatient (CLI) | payer BC, SELFPAY ==
--- NOTE | 2021-01-09 11:58 | XR_ITS ---
PROCEDURE: XR HIP LT 2-3V W/PELVIS CLINICAL INDICATION: left total hip, sx 12/25/20 COMPARISON: CR XR HIP LT 2-3V W/PELVIS from 12/25/2020 FINDINGS: Status post total left hip replacement with good alignment. Dissolving antibiotic beads noted within the soft tissues about the hip joint and lateral to the ilium IMPRESSION: Good alignment status post total hip replacement Dictated by: Filiberto Vizcarra MD 01/09/2021 17:47 Filiberto Vizcarra MD in [place] 01/09/2021 17:47
== END ==
PROVIDERS: PCP Nurse Practitioner Family; Visit Provider Orthopaedic Surgery
DX: Z09 Encounter for follow-up examination after completed treatment for conditions other than malignant neoplasm (principal); M25.552 Pain in left hip
CPT/HCPCS: 73502

== ENCOUNTER → 2021-02-14 08:51 | Outpatient (CLI) | payer BC, SELFPAY ==
--- NOTE | 2021-02-14 08:51 | XR_ITS ---
PROCEDURE: XR DEXA AXIAL SKELETON CLINICAL HISTORY: evaluate for osteoporosis COMPARISON: No exams were available for comparison FINDINGS: The right hip BMD is 0.809 with a T-score of -0.4. Radius 1/3 density is 0.715 with a T-score of 0.4 The lumbar spine BMD is 1.024 with a T-score of -0.2. Previously the lowest density was in the right femoral neck with a T-score of -2.0. IMPRESSION: This patient is considered normal according to the World Health Organization criteria. Fracture risk is low. Based on these results a follow-up exam is recommended in 2 year. Dictated by: Filiberto Vizcarra MD 02/14/2021 16:17 Filiberto Vizcarra MD in [place] 02/14/2021 16:17
== END ==
PROVIDERS: PCP Nurse Practitioner Family; Visit Provider Orthopaedic Surgery
DX: M81.0 Age-related osteoporosis without current pathological fracture (principal)
CPT/HCPCS: 77080

== ENCOUNTER → 2021-03-21 11:07 | Outpatient (CLI) | payer BC, SELFPAY ==
--- NOTE | 2021-03-21 11:14 | XR_ITS ---
FINAL REPORT CLINICAL HISTORY: sp LT total hip, sx 12/25/20 COMPARISON: January 09, 2021 FINDINGS: LEFT HIP Two views of the left hip including an AP pelvis demonstrate no acute fracture or dislocation. There are postoperative changes from left hip arthroplasty. The visualized bony structures are well aligned. There is a chronic calcification adjacent to the right acetabulum. IMPRESSION: Postoperative changes with no acute bony abnormality. Reviewed, Interpreted and Dictated by Farhat Naqvi III, MD Transcribed by Madhuri Treviño Authenticated by Farhat Naqvi III, MD on 03/21/2021 12:44:49 PM [facility]
== END ==
PROVIDERS: PCP Nurse Practitioner Family; Visit Provider Orthopaedic Surgery
DX: M25.552 Pain in left hip (principal); Z96.642 Presence of left artificial hip joint
CPT/HCPCS: 73502

== ENCOUNTER → 2021-07-31 08:00 | Outpatient (POV) | payer BC, SELFPAY | PROVIDERS: Visit Provider Dermatology | DX: Z00.00 Encounter for general adult medical examination without abnormal findings (principal) ==

== ENCOUNTER → 2021-07-31 08:28 | Outpatient (CLI) | payer OTHER, SELFPAY ==
--- NOTE | 2021-07-31 08:51 | XR_ITS ---
FINAL REPORT CLINICAL HISTORY: lt CORINNA COMPARISON: March 21, 2021 FINDINGS: 2 views of the left hip and an AP pelvis were obtained. There is a left hip prosthesis in anatomic alignment. The right femoral head has a normal smooth contour. 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 IMPRESSION: Left hip arthroplasty in anatomic alignment. Reviewed, Interpreted and Dictated by Carlos Orozco MD Transcribed by Esvin Rodrigez Authenticated by Carlos Orozco MD on 07/31/2021 09:33:54 AM [facility][1]
== END ==
PROVIDERS: PCP Nurse Practitioner Family; Visit Provider Physician Assistant Surgical
DX: Z09 Encounter for follow-up examination after completed treatment for conditions other than malignant neoplasm (principal); M25.552 Pain in left hip
CPT/HCPCS: 73502

== ENCOUNTER 2022-11-25 18:51 | Emergency (ER) | payer MEDICARE, SELFPAY ==
[2022-11-25 19:15] VITALS: BP 170/91; PULSE 95; RESP 18; TEMP 37; O2SAT 99; BMI 26.5
--- NOTE | 2022-11-25 19:22 | EXP.UTC ---
Discharge Plan Disposition Patient Disposition: Home, Self-Care Condition: Good Prescriptions Prescriptions: New phenazopyridine [Pyridium] 200 mg tablet 200 mg PO Q8H 2 Days Qty: 6 0RF ciprofloxacin HCl [Cipro] 500 mg tablet 500 mg PO BID 7 Days Qty: 14 0RF ondansetron 4 mg Tablet,Disintegrating 4 mg PO Q8H PRN (Reason: Nausea) Qty: 12 0RF No Action aspirin 325 mg tablet 325 mg PO DAILY 30 Days Qty: 30 0RF levothyroxine 88 MCG tablet 88 mcg PO DAILY losartan 50 MG tablet 50 mg PO DAILY metformin 1,000 MG tablet 1,000 mg PO BID sitagliptin phosphate 100 MG tablet 100 mg PO DAILY Qty: 30 0RF (DME) blood-glucose meter 1 EACH misc 1 each MC BID Qty: 1 0RF (DME) blood sugar diagnostic 1 EACH strip 1 each MC BID Qty: 100 0RF atorvastatin 40 mg tablet 40 mg PO DAILY Referrals Follow up/Referrals: Neisha Taylor APRN [Primary Care Provider] - See instructions Activity Restrictions/Add. Instructions Additional Instructions/Restrictions: Drink plenty of fluids. Take tylenol or ibuprofen for pain or fever. Take the medications as directed. Follow up with your regular doctor. GO TO THE ER FOR ANY WORSENING SYMPTOMS The pyridium will make your urine turn orange, this is an expected side effect. It will stain your clothes if it comes into contact with them. We will culture the urine. That will tell what bacteria is causing your infection and which antibiotics will treat it best. Sometimes the first antibiotic we prescribe turns out to not work against different bacteria. So, make sure you follow up within 3 days if you are not getting better. Clinical Impressions Clinical Impression: UTI (urinary tract infection), Acute right flank pain Instructions Patient Instructions: DI for Urinary Tract Infection (UTI), Ondansetron, Phenazopyridine Discharge ED Provider: Bucky Gamez [facility] General Stated complaint: possible kidney stone Time Seen by Provider: 11/25/22 19:22 History of Present Illness Provider Complaint: She states that for the past 1 day she has had low back pain, right flank pain, dysuria, and she has felt bad. Related Data Home Medications Medication Instructions Recorded Confirmed levothyroxine 88 mcg tablet 88 mcg PO DAILY THYROID 07/15/17 11/25/22 losartan 50 mg tablet 50 mg PO DAILY BLOOD PRESSURE 12/24/20 11/25/22 metformin 1,000 mg tablet 1,000 mg PO BID Diabetes 12/24/20 11/25/22 atorvastatin 40 mg tablet 40 mg PO DAILY . 11/25/22 11/25/22 Previous Rx's Medication Instructions Recorded blood sugar diagnostic #100 strips 12/28/20 blood-glucose meter #1 ea 12/28/20 sitagliptin phosphate 100 mg tablet 100 mg PO DAILY #30 tabs 12/28/20 aspirin 325 mg tablet 325 mg PO DAILY 30 days #30 tabs 01/09/21 ciprofloxacin HCl 500 mg tablet 500 mg PO BID 7 days #14 tabs 11/25/22 (Cipro) ondansetron 4 mg disintegrating 4 mg PO Q8H PRN Nausea #12 tabs 11/25/22 tablet phenazopyridine 200 mg tablet 200 mg PO Q8H 2 days #6 tabs 11/25/22 (Pyridium) Allergies Allergy/AdvReac Type Severity Reaction Status Date / Time Penicillins Allergy Verified 11/25/22 19:31 [facility] Disclaimer: The information contained in this section may have been updated after the patient was seen, as this information can be updated by other users. Social History Smoking Status: Never smoker alcohol intake: current substance use type: denies use current occupational status: retired Travel in the last 8 weeks: None housing: house current occupational exposures/hazards: No caffeine: Yes ROS Obtained: Yes All systems reviewed & no additional complaints except as documented Constitutional Constitutional: Reports system reviewed and no additional complaints, except as documented, Denies chills and Denies fever(s) Eyes Eyes: Denies eye discharge ENT Ears, N
[2022-11-25 20:09] VITALS: BP 170/91; PULSE 95; RESP 18; TEMP 37; O2SAT 99
[2022-11-25 20:19] LABS: Microscopic, Urine URINE MICROSCOPIC (MICROSCOPIC)
[2022-11-25 20:26] LABS: Appearance,Urine SL CLOUDY (Clear); Bilirubin,Urine Negative (Negative); Blood, Urine 2+ (Negative); Color,Urine YELLOW (Yellow); Glucose,Urine (UA) Negative (Negative); Ketones,Urine Negative (Negative); Leukocyte Esterase,Urine 2+ (Negative); Nitrate,Urine POSITIVE (Negative); Protein,Urine 2+ (Negative); Specific Gravity, Urine 1.025 (1.005-1.030); Urobilinogen,Urine 0.2 EU/dl (0.2)
[2022-11-25 21:10] LABS: Bacteria,Urine 2+ /lpf; Mucus,Urine 1+ /lpf
== END 2022-11-25 20:09 | disposition home or self-care (01) ==
PROVIDERS: Emergency Provider Nurse Practitioner Family; PCP Nurse Practitioner Family
DX: N39.0 Urinary tract infection, site not specified (principal); B96.89 Other specified bacterial agents as the cause of diseases classified elsewhere; R10.31 Right lower quadrant pain; M54.59 Other low back pain
CPT/HCPCS: 81001; 87086; 87088; 87186; 99212; 99214; G0463

== ENCOUNTER → 2022-11-29 08:32 | Outpatient (CLI) | payer MEDICARE, SELFPAY ==
[2022-11-29 09:14] LABS: Basophils % 0.3 % (0.1-2.0); Eosinophils # 0.1 K/mm3 (0.0-0.4); Eosinophils % 2.7 % (0.1-12.0); Hematocrit 39.7 % (37.0-47.0); Hemoglobin 12.4 g/dL (12.2-16.2); Lymphocytes # 1.3 K/mm3 (0.7-4.5); Lymphocytes % 26.3 % (10-50); Mean Corpuscular HGB Conc 31.1 g/dL (31.8-35.4); Mean Corpuscular Hemoglobin 28.3 pg (27.0-31.2); Mean Corpuscular Volume 90.9 fl (81-99); Mean Platelet Volume 9.3 fl (7.4-10.4); Monocytes # 0.5 K/mm3 (0.1-1.0); Monocytes % 8.9 % (1.7-9.3); Neutrophils # 3.1 K/mm3 (1.8-7.8); Neutrophils % 61.8 % (37.0-80.0); Platelet Count 233 K/mm3 (142-424); Red Blood Count 4.37 M/mm3 (4.20-5.40); Red Cell Distribution Width 13.7 % (11.5-17.5)
[2022-11-29 09:51] LABS: Alanine Aminotransferase 31 U/L (12-78); Albumin Level 3.8 g/dl (3.5-5.0); Albumin/Globulin Ratio 1.3 (1.1-1.8); Alkaline Phosphatase 90 U/L (38-126); Amylase 60 U/L (30-110); Anion Gap 13.5 mEq/L (5-15); Aspartate Amino Transferase 30 U/L (14-36); Bilirubin,Total 1.2 mg/dl (0.2-1.3); Blood Urea Nitrogen 29 mg/dl (7-17); Calcium 9.3 mg/dl (8.4-10.2); Carbon Dioxide 30 mmol/L (22.0-30.0); Chloride 103 mmol/L (98-107); Estimated Glomerular Filt Rate 38 ml/min (>60); GFR (African American) 46 ML/MIN (>60); Globulin 2.9 g/dL (1.3-3.2); Glucose 136 mg/dl (74-100); Lipase 232 U/L (23-300); Potassium 4.5 mmoL/L (3.5-5.1); Sodium 142 mmol/L (136-145); Total Protein,Serum 6.7 g/dl (6.3-8.2)
== END ==
PROVIDERS: PCP Nurse Practitioner Family; Visit Provider Nurse Practitioner Family
DX: K80.20 Calculus of gallbladder without cholecystitis without obstruction (principal); N20.0 Calculus of kidney
CPT/HCPCS: 36415; 80053; 82150; 83690; 85025

== ENCOUNTER 2025-01-11 08:12 | Outpatient (CLI) | payer MEDICARE, SELFPAY ==
--- NOTE | 2025-01-11 08:16 | XR_ITS ---
FINAL REPORT TECHNIQUE: Bone densitometry calculations of the lumbar spine and right hip were obtained. CLINICAL HISTORY: SCREENING COMPARISON: 02/14/2021 FINDINGS: Using L1-4, the bone mineral density of the spine is 1.051 g/cm2, corresponding to T-score of 0.0 and a Z score of 2.0. This is within the range of normal. The bone mineral density change from baseline of 2020 is 2.6%. Using the right hip, the bone mineral density of the femoral neck is 0.747 g/cm2, corresponding to a T-score of -0.9 and a Z-score of 0.8. This is within the range of normal. The bone mineral density change from baseline of 2020 is -7.7%. NOTE: T-score: Standard deviation compared with peak bone mass of young adult mean. *Following the recommendations of the International Society of Bone densitometry, classification of hip BMD is based on the lower of two T-scores; total hip or femoral neck. IMPRESSION: 1. Bone mineral density of the lumbar spine within the range of normal. 2. Bone mineral density of the right femoral neck within the range of normal. Reviewed, Interpreted and Dictated by Yenny Goldman MD Transcribed by Constance Martinez Authenticated and . [facility]
--- NOTE | 2025-01-11 08:16 | MM_ITS ---
PROCEDURE INFORMATION: Exam: MG Bilateral Screening 3D Mammography Exam date and time: 01/11/2025 8:24 AM Age: 69 years old Clinical indication: Screening examination TECHNIQUE: Imaging protocol: Bilateral Screening tomosynthesis and 2D mammography including computer-aided detection (CAD) when performed. COMPARISON: 1. MG SCREENING MAMMOGRAM 04/02/2013 10:47 AM 2. MG SCREENING MAMMOGRAM 04/01/2012 10:15 AM FINDINGS: MAMMOGRAPHY: Breast composition: There are scattered areas of fibroglandular density. Mass: No suspicious masses. Architectural distortion: None. Calcifications: No suspicious calcifications. Asymmetric density: None. Skin thickening: None. Axillary adenopathy: None. IMPRESSION: No mammographic evidence of malignancy. Annual screening is recommended unless otherwise clinically indicated. ASSESSMENT: BI-RADS Category 1: Negative.
== END 2025-01-11 23:59 | disposition home or self-care (01) ==
LOC: RAD 08:13
PROVIDERS: PCP Nurse Practitioner Family; Visit Provider Student in an Organized Health Care Education/Training Program
DX: Z12.31 Encounter for screening mammogram for malignant neoplasm of breast (principal); R92.323 Mammographic fibroglandular density, bilateral breasts; Z13.820 Encounter for screening for osteoporosis
CPT/HCPCS: 77063; 77067; 77080